=== PATIENT | female | born 1955 | race Caucasian/White ===

== ENCOUNTER → 2023-09-21 10:56 | Outpatient (REF) | payer OTHER, SELFPAY | LOC: RAD 10:56 | PROVIDERS: ATTENDING PHYSICIAN Nurse Practitioner Family; FAMILY PHYSICIAN Family Medicine | DX: M54.12 Radiculopathy, cervical region (principal) | CPT/HCPCS: 72050 ==

== ENCOUNTER → 2023-09-28 07:33 | Outpatient (REF) | payer OTHER, SELFPAY | LOC: EMG 07:33 | PROVIDERS: ATTENDING PHYSICIAN Nurse Practitioner Family | DX: R20.0 Anesthesia of skin (principal) | CPT/HCPCS: 95886; 95911 ==

== ENCOUNTER 2023-10-03 04:27 | Emergency (ER) | payer OTHER, SELFPAY ==
[2023-10-03 04:33] VITALS: BP 136/89
[2023-10-03 05:46] VITALS: BP 121/74
--- NOTE | 2023-10-03 07:43 | ED.GENMED ---
History of Present Illness
General
Chief Complaint: Skin Problem
Source: patient
Exam Limitations: none
Time Seen by Provider: 10/03/23 07:08
Nursing documentation reviewed up to this point in time: agreed with
History of Present Illness
History of Present Illness:
68-year female presents to the ER for evaluation of rash. Patient reports 2 days ago she noticed what she thought was bug bites to her arms. In the middle the night however 3 AM she got up because she felt burning in her forearms and thighs felt
the chills and vomiting and then noticed a rash to her forearms and thighs. She reports the rash is spread to her abdomen. She did take Benadryl prior to arrival and rash improving. Rash is very itchy and burning. She denies any fever though she
had chills in the middle the night. She denies any difficulty breathing lip or tongue swelling.
Past History
Past History
ED Past Medical History: Negative Hypercholesterolemia, NIDDM or IA
ED Past Surgical History: Negative Cardiac or Cholecystectomy
Social History
Tobacco: Non-smoker
Alcohol: None
Drug: None
Personal:
Living: with family
Employment: Employed
Family History
Family History: Other (Diverticulitis)
Review of Systems
Review of Systems
Allergies reviewed?: Yes
All Other Systems: ROS reviewed and negative except as documented in HPI and ROS
Constitutional: Reports no symptoms; Denies fever, fatigue or chills
Respiratory: Reports no symptoms
Cardiac: Reports no symptoms
ABD/GI: Reports nausea and vomiting
: Reports no symptoms
Musculoskeletal: Reports no symptoms
Skin: Reports itching and other (redness/rash to arms , legs/abdomen )
Neurological: Reports no symptoms
Hematologic/Lymphatic: Reports no symptoms
Psychiatric: Reports no symptoms
Phy Exam
General Physical Exam
General Presentation: no apparent distress
General age: appears stated age
General Skin: warm and dry
General Habitus: normal
General Mental: alert
General Hydration: appears well hydrated
ENT Exam
ENT Exam: other ( no lip /tongue swelling )
Neurological Exam
Neurological Exam: alert and oriented x3
Musculoskeletal Exam
Musculoskeletal Exam: full ROM
Skin Exam
Skin Exam: normal color, warm/dry and other (Redness to forearms, appears to be mild hives with redness to groin and abdomen)
Course
Orders/Labs/Results
Orders:
Orders
10/03/23 07:42
Dexamethasone Sod Phosphate [Decadron] 10 mg IV NOW STA
10/03/23 08:12
Complete Blood Count/With Diff Urgent
Comprehensive Metabolic Panel Urgent
Abnormal Lab Results
10/03/23
08:12
RBC 3.66 L 10^6/uL
(4.20-5.40)
Hgb 11.3 L g/dL
(12.0-16.0)
Hct 32.0 L %
(37.0-47.0)
Monocytes % 11.6 H %
(1.7-9.3)
AST 38 H U/L
(14-36)
10/03/23 08:12
10/03/23 08:12
Vital Signs
Initial and Last Documented VS:
Initial Vital Signs
Temp Pulse Resp BP Pulse Ox
99.0 F 79 15 136/89 99
10/03/23 04:33 10/03/23 04:33 10/03/23 04:33 10/03/23 04:33 10/03/23 04:33
Last Documented Vital Signs
Temp Pulse Resp BP Pulse Ox
99.0 F 81 20 121/74 97
10/03/23 04:33 10/03/23 05:46 10/03/23 05:46 10/03/23 05:46 10/03/23 05:46
MDM/Problems Addressed
Differential Diagnosis Includes:
not limited to: allergic reaction, contact dermatitis
MDM/Problems Addressed:
Symptoms are consistent with allergic . with c/o of chills and episode of vomiting will check basic labs give a dose of steroids and plan to d/c w/ steroids /benadryl.
0905: Patient feeling better labs unremarkable afebrile normal white count as documented symptoms are consistent with allergic less concern for infection. Will give patient prescription for steroids for the next 3 days as needed on Benadryl
*Pulse Oximetry
Patient hypoxic: no
*Critical Care Note
Total Time (30-74mins, 75-104mins- exclusive of procedures): Not Applicable
ED Attending Note
-
Portions of this chart may have been created with voice recognition software.� Occasional wrong word or��sound alike� substitutions may have occurred due to the inherent limitations of voice recognition software.
Discharge Plan
Departure
Patient Disposition: Home (Routine Discharge)
Date of Disposition: 10/03/23
Time of Disposition: 09:08
Patient with high blood pressure during this ER visit?: Yes
Condition: Fair
Covid-19: Not Applicable
Discharge Problem:
Rash
Instructions: Skin Rash (DC)
Prescriptions:
New
prednisone 20 mg tablet
40 mg PO DAILY Qty: 8 0RF
No Action
venlafaxine 75 MG capsule,extended release 24hr
150 mg PO DAILY
metoprolol succinate [Toprol XL] 50 MG tablet extended release 24 hr
75 mg PO DAILY
candesartan 8 mg Tablet
8 mg PO DAILY
rosuvastatin [Crestor] 20 mg Tablet
20 mg PO DAILY
Gemtesa 75 mg Tablet
75 mg PO DAILY
Referrals:
Jessica He DO [Family Provider] -
Activity Restrictions/Additional Instructions:
As discussed continue Benadryl 25 to 50 mg orally every 4-6 hours. You may continue steroids only if needed starting tomorrow daily for the next 4 days. Return however to the ER if any worsening of symptoms of worsening rash difficulty breathing
fever chills. Follow-up with family doctor the next several days.
Interventions
Interventions:
*Risk Screen - Suicide Last Done: 10/03/23 04:33
*General Assessment Last Done: 10/03/23 04:33
*Neglect/Abuse Screening Last Done: 10/03/23 04:33
ED- Fall Risk Assessment Last Done: 10/03/23 05:46
*ED COVID-19 Vaccine History Last Done: 10/03/23 04:33
ED-Skin Assessment Last Done: 10/03/23 05:46
Discharge Date and Time
Print Language: CANADIAN
[2023-10-03] MEDS: DECADRON 10 MG IV (08:12)
[2023-10-03 08:17] LABS: % Basophils 0.4 % (0-2); % Eosinophils 1.9 % (0-6); % Immature Granulocytes 0.2 % (0-0.5); % Lymphocytes 24.4 % (20.5-51.1); % Monocytes 11.6 % (1.7-9.3); % Neutrophils 61.5 % (42.2-75.2); Absolute Eosinophils 0.1 10^3/uL (0-0.7); Absolute Lymphocytes 1.2 10^3/uL (1.2-3.4); Absolute Monocytes 0.6 10^3/uL (0.1-0.6); Absolute Neutrophils 2.9 10^3/uL (1.4-6.5); Hemoglobin 11.3 g/dL (12.0-16.0); Mean Corp Hgb Conc. 35.3 g/dL (33.0-37.0); Mean Corpuscular Hgb 30.9 pg (27.0-31.0); Mean Corpuscular Volume 87.4 fL (81.0-99.0); Mean Platelet Volume 9.8 fL (7.4-10.4); Nucleated Red Blood Cells % 0 %; Platelet Count 266 10^3/uL (130-400); Red Blood Cell Count 3.66 10^6/uL (4.20-5.40); Red Cell Dist. Width 12.1 % (11.5-14.5); White Blood Cell Count 4.8 10^3/uL (4.8-10.8)
[2023-10-03 08:29] LABS: ALT (SGPT) 31 U/L (0-35); AST (SGOT) 38 U/L (14-36); Albumin 4.1 g/dl (3.5-5.0); Alkaline Phosphatase 78 U/L (38-126); Blood Urea Nitrogen 12 mg/dl (7-17); Calcium 9.1 mg/dl (8.4-10.2); Carbon Dioxide 26 mmol/L (22-30); Chloride 106 mmol/L (98-107); Glucose 97 mg/dl (70-99); Potassium 4.4 mmol/L (3.5-5.1); Sodium 139 mmol/L (135-145); Total Bilirubin 0.4 mg/dl (0.2-1.3); Total Protein 7.6 g/dl (6.3-8.2); eGFR > 60.00
== END 2023-10-03 09:10 | disposition home or self-care (01) ==
LOC: EMR 04:27
PROVIDERS: Nurse Practitioner; EMERGENCY PHYSICIAN Student in an Organized Health Care Education/Training Program; FAMILY PHYSICIAN Family Medicine
DX: R21 Rash and other nonspecific skin eruption (principal); R03.0 Elevated blood-pressure reading, without diagnosis of hypertension
CPT/HCPCS: 99284; 96374; 80053; 85025

== ENCOUNTER → 2023-12-25 07:39 | Outpatient (REF) | payer OTHER, SELFPAY | LOC: RAD 07:39 | PROVIDERS: ATTENDING PHYSICIAN Physician Assistant; FAMILY PHYSICIAN Family Medicine | DX: M79.643 Pain in unspecified hand (principal) | CPT/HCPCS: 73120 ==

== ENCOUNTER → 2024-01-01 10:22 | Outpatient (REF) | payer OTHER, SELFPAY | LOC: RAD 10:22 | PROVIDERS: ATTENDING PHYSICIAN Internal Medicine Rheumatology; FAMILY PHYSICIAN Family Medicine | DX: M05.741 Rheumatoid arthritis with rheumatoid factor of right hand without organ or systems involvement (principal); M05.742 Rheumatoid arthritis with rheumatoid factor of left hand without organ or systems involvement; R07.81 Pleurodynia; R76.8 Other specified abnormal immunological findings in serum | CPT/HCPCS: 71101 ==

== ENCOUNTER 2024-01-16 04:02 | Inpatient (IN) | payer OTHER, SELFPAY ==
[2024-01-15 23:04] VITALS: BP 137/83
[2024-01-15 23:20] LABS: % Basophils 0.7 % (0-2); % Eosinophils 2.3 % (0-6); % Immature Granulocytes 0.2 % (0-0.5); % Lymphocytes 28.4 % (20.5-51.1); % Monocytes 17.8 % (1.7-9.3); % Neutrophils 50.6 % (42.2-75.2); Absolute Eosinophils 0.1 10^3/uL (0-0.7); Absolute Lymphocytes 1.6 10^3/uL (1.2-3.4); Absolute Neutrophils 2.8 10^3/uL (1.4-6.5); Hematocrit 30.3 % (37.0-47.0); Hemoglobin 10.5 g/dL (12.0-16.0); Mean Corp Hgb Conc. 34.7 g/dL (33.0-37.0); Mean Corpuscular Hgb 30.6 pg (27.0-31.0); Mean Corpuscular Volume 88.3 fL (81.0-99.0); Mean Platelet Volume 9.9 fL (7.4-10.4); Nucleated Red Blood Cells % 0 %; Platelet Count 312 10^3/uL (130-400); Red Blood Cell Count 3.43 10^6/uL (4.20-5.40); Red Cell Dist. Width 12.5 % (11.5-14.5); White Blood Cell Count 5.6 10^3/uL (4.8-10.8)
[2024-01-15 23:40] LABS: ALT (SGPT) 20 U/L (0-35); AST (SGOT) 31 U/L (14-36); Alkaline Phosphatase 61 U/L (38-126); Blood Urea Nitrogen 12 mg/dl (7-17); Calcium 9.7 mg/dl (8.4-10.2); Carbon Dioxide 30 mmol/L (22-30); Chloride 102 mmol/L (98-107); Glucose 95 mg/dl (70-99); Potassium 3.9 mmol/L (3.5-5.1); Sodium 139 mmol/L (135-145); Total Bilirubin < 0.1 mg/dl (0.2-1.3); Total Protein 7.4 g/dl (6.3-8.2); eGFR > 60.00
[2024-01-15 23:43] LABS: NT-proBNP 166 pg/ml
[2024-01-15 23:46] VITALS: BP 137/69
[2024-01-15 23:48] VITALS: BMI 22.4
[2024-01-16] VITALS (26 sets, daily range): BP systolic 92–153; BP diastolic 59–97; BMI 22.8
[2024-01-16 00:25] LABS: D-Dimer 0.47 ug/mlFEU (0.00-0.50)
[2024-01-16 00:27] LABS: Lipase 149 U/L (23-300)
--- NOTE | 2024-01-16 00:29 | ED.GENMED ---
History of Present Illness
General
Chief Complaint: Chest Pain
Source: patient
Exam Limitations: none
Time Seen by Provider: 01/15/24 23:29
Nursing documentation reviewed up to this point in time: agreed with
History of Present Illness
History of Present Illness:
68-year-old female with a past medical history of hypertension, hyperlipidemia, atrial fibrillation, lupus who presents to the emergency room for evaluation of chest pain. Patient reports onset of symptoms this evening�she says she was walking home
from her friend's house (she says friend lives about 3 houses away); she says that while she was walking she developed a substernal chest pressure. She says that this lasted until she got home and rested and then resolved completely. She says
total duration of symptoms was roughly 10 minutes. She currently is chest pain-free. She said she had some very mild shortness of breath/increased awareness of her breathing but did not have any other symptoms. Denies any nausea, vomiting,
diaphoresis. She denies ever having similar symptoms in the past. She has seen Dr. Vela in the past for cardiology. In addition to chest pain for which she is presenting tonight she says that she has had some soreness in her left lower ribs
for the past week; she says she has already seen her primary doctor and had an x-ray of her ribs which was negative.
Past History
Past History
ED Past Medical History: Negative Hypercholesterolemia, NIDDM or CA
ED Past Surgical History: Negative Cardiac or Cholecystectomy
Social History
Tobacco: Non-smoker
Alcohol: None
Drug: None
Personal:
Living: with family
Employment: Employed
Family History
Family History: Other (Diverticulitis)
Review of Systems
Review of Systems
All Other Systems: ROS reviewed and negative except as documented in HPI and ROS
Constitutional: Denies fever or chills
Respiratory: Reports trouble breathing; Denies cough
Cardiac: Reports chest pain; Denies diaphoresis or palpitations
ABD/GI: Denies abdominal pain, nausea or vomiting
: Denies flank pain
Musculoskeletal: Denies edema, neck pain or back pain
Neurological: Denies dizzy or headache
Phy Exam
Physical Exam
Physical Exam:
General: Awake, alert, oriented x3; no acute distress
Head: Normocephalic, atraumatic
Eyes: Conjunctiva normal
Throat: Airway intact, handling secretions
Neck: Trachea midline, supple without meningismus
Lungs: Clear to auscultation bilaterally, no wheezing, rales, rhonchi
Heart: Regular rate and rhythm, no murmurs, gallops, or rubs; no reducible rib tenderness
Abd: Soft, non distended, nontender
Neuro: No gross deficits
Skin: no rash
Extremities: No edema in extremities, equal pulses in all extremities
Scores
Heart Failure Risk
Heart Failure Risk Score: Not Applicable
Heart Score for Chest Pain Patients
STEMI patient?: No
History: Moderately Suspicious
ECG: Normal
Age: >/= 65 years
Risk Factors: 1 or 2 Risk Factors
Troponin: </= Normal Limit
Heart Score for Chest Pain Patients: 4
Heart Score Risk: 20.3% MACE over next 6 weeks
Withdrawal Assessment of Alcohol
Withdrawal Assessment Completed?: Not applicable
Course
Orders/Labs/Results
Orders:
Orders
01/15/24 22:46
Electrocardiogram (*1) Urgent
Reason for Study: Other
Other Reason for Exam: Respiratory Distress
Cardiac Monitoring- Treatment ONCE
EKG- Treatment ONCE
IV Insert/Care/Rem.- Treatment PRN
CR Chest - 2 Views Urgent
Comment:
Reason For Exam: respiratory distress
01/15/24 23:13
Complete Blood Count/With Diff Urgent
Comprehensive Metabolic Panel Urgent
NT-proBNP Urgent
Troponin I Urgent
01/15/24 23:55
D-Dimer Urgent
Lipase Urgent
PTT Urgent
Comment: ADD ON
01/16/24 01:18
Electrocardiogram (*1) Urgent
Reason for Study: Chest Pain
EKG- Treatment ONCE
01/16/24 02:18
Troponin I Urgent
01/16/24 02:56
Aspirin Chewable [Low Strength Aspirin] 324 mg PO NOW STA
Heparin 3,700 units IV NOW STA
Nursing to Place Non Medication Order As Directed
Physician Order: PTT 6 hours after initial start of Heparin infusion
Above order entered?: Yes
01/16/24 02:58
CARDIOLOGY CONSULT Urgent
Consulting Provider: Chance Fisher
Was physician already notified: No
Reason for consult: NSTEMI
01/16/24 02:59
Consult Notification Routine
Specialty to Notify: Cardiology
01/16/24 03:00
Heparin [id number] Units/250 ml 25,000 units in 250 ml IV PER PROTOCOL
Weight to be used for heparin protocol in kilograms (kg):: 62
Protocol:: Cardiac Tx/Acute Coronary
PTT Goal Range to be used:: PTT 73 to 111 seconds
Order type:: Initial
INITIAL Infusion Dose (UNITS/KG/hr) & then follow protocol:: 15 units/kg/hr
Infusion Dose in UNITS/hr & then follow protocol (UNITS/hr):: 950
INFUSION RATE in mL/hr & then follow protocol (mL/hr):: 9.5
PTT less than or equal to 64 seconds:: Increase rate by 200 units/hr (+ 2 mL/hr)
PTT 64.1 to 72.9 seconds:: Increase rate by 100 units/hr (+ 1 mL/hr)
PTT 73 to 111 seconds:: Target Range. No change in rate.
PTT 111.1 to 130.9 seconds:: Decrease rate by 100 units/hr (- 1 mL/hr)
PTT 131 to 199.9 seconds:: HOLD for 1 hr. Then decrease rate by 200 units/hr (- 2 mL/hr)
PTT greater than or equal to 200 seconds:: HOLD for 2 hrs & Notify Provider. Then decrease by 200 units/hr (-
2 mL/hr)
Lab follow-up:: Each change, PTT q6h until 2 consecutive are therapeutic. Then PTT
daily.
01/16/24 03:05
Add On- LAB Urgent
Tests Added?: PTT
01/16/24 03:17
Heparin [id number] Units/250 ml 25,000 units in 250 ml .ROUTE .STK-MED
01/16/24 03:30
Electrocardiogram (*1) Urgent
Reason for Study: Chest Pain
EKG- Treatment ONCE
Nitroglycerin Sublingual [Nitrostat (Sublingual)] 0.4 mg SL NOW STA
01/16/24 03:31
Nitroglycerin Sublingual [Nitrostat (Sublingual)] 0.4 mg .ROUTE .STK-MED ONE
01/16/24 03:43
Admit/Transfer Patient As Directed
Co-Sign Provider:
Level of Care: Inpatient admission
Assign to:: IVU
Physician / Group: Hospitalist
Diagnosis: NSTEMI
Reason for Hospitalization: NSTEMI, chest pain
Expected length of stay greater than two midnights?: Yes
ELOS- Estimated Length of Stay in days: 2
I certify the patient meets the requirements for IP care: Yes
PRN Pain Medication Management As Directed
May give lesser potent ordered pain med per pt: Yes
preference::
Protocol:: Medication orders for pain may be administered in a
manner that supports deferring to patient preference
when the pt is:
- Requesting an ordered lesser potent pain medication.
Least to most potent pain medications are defined
as: acetaminophen < NSAID < tramadol < opioids
(morphine, oxycodone, hydromorphone).
- Requesting a lesser dose of the same medication IF
ORDERED.
- Requesting a less intrusive route of administration
if both routes are prescribed by the provider (PO <
IV).
01/16/24 03:44
Code Status As Directed
Resuscitation Status: Full Code
01/16/24 04:00
Flush (0.9% Sodium Chloride) [Flush (Nss)] See Dose Instructions IV PER PROTOCOL
01/16/24 04:48
Acetaminophen [Tylenol] 650 mg PO Q4HPRN PRN
Nitroglycerin Sublingual [Nitrostat (Sublingual)] 0.4 mg SL [id number] PRN
Ondansetron Injectable [Zofran] 4 mg IV Q6HPRN PRN
01/16/24 04:48
Echo 2D MMode Color/Doppler Routine
Reason for Study: chest pain
VTE Contraindication Routine
VTE Mechanical Device Contraindication: Medical Contraindication
Pharmocologic Contraindication: Medical Contraindication
Heparin Protocol- PTT Orders As Directed
PTT per Heparin protocol: -Obtain CBC and baseline PTT - if not already collected.
-Obtain PTT 6 hours from start of infusion. Then, every 6 hours until 2 consecutive
PTT's are therapeutic. Then, PTT Daily.
-With each rate change, obtain PTT every 6 hours until 2 consecutive PTT's are
therapeutic. Then, PTT Daily.
Activity As Directed
Activity Level: With Assistance
INT (Intravenous Needle Therapy) As Directed
Comment: maintain peripheral IV access
Intake/ Output As Directed
Frequency: Per unit guidelines
Notify MD As Directed
Notify physician if: PTT is greater than or equal to 200.
Vital Signs As Directed
Frequency: q4h
Weight As Directed
Frequency: Daily
O2 Therapy [RESP] Routine
Nasal Cannula Liter Flow: 2 LPM
Titrate/Wean O2 to maintain O2 sat greater than (%): 90
Special Instructions: 2 liters/minute as needed for pulse oximetry less than 90%
Pulse Ox/spot Check [RESP] Routine
Quantity: 1
Special Instructions: on admission and then every shift if on oxygen
01/16/24 06:00
Electrocardiogram (*1) Q6H
Reason for Study: Chest Pain
Comment: at admission and Q3H for total of 3, to be done with each troponin
NPO
Allow oral meds: Yes
Allow clear liquids: Sips of Clears
Basic Metabolic Panel IN AM
Cardiovascular Evaluation IN AM
Glycohemoglobin (HgbA1c) IN AM
Troponin I Q3H
Comment: at admit & Q3H for 3 total including ED draws, obtain ECG with each level
01/16/24 08:00
Hydroxychloroquine [Plaquenil] 300 mg PO DAILY
01/16/24 09:00
Troponin I Q3H
Comment: at admit & Q3H for 3 total including ED draws, obtain ECG with each level
01/16/24 09:26
PTT Urgent
01/16/24 12:00
Electrocardiogram (*1) Q6H
Reason for Study: Chest Pain
Comment: at admission and Q3H for total of 3, to be done with each troponin
01/16/24 22:00
Candesartan Cilexetil [Atacand] 8 mg PO HS
Metoprolol Xl [Toprol Xl] 75 mg PO HS
Raloxifene [Evista] 60 mg PO HS
Rosuvastatin Calcium [Crestor] 20 mg PO HS
Venlafaxine Extended Release [Effexor Xr] 150 mg PO HS
01/18/24 06:00
Complete Blood Count/No Diff Q2D
Comment: notify provider: Platelet count < 130,000 or decrease by 50% from baseline
01/20/24 06:00
Complete Blood Count/No Diff Q2D
Comment: notify provider: Platelet count < 130,000 or decrease by 50% from baseline
01/22/24 06:00
Complete Blood Count/No Diff Q2D
Comment: notify provider: Platelet count < 130,000 or decrease by 50% from baseline
01/24/24 06:00
Complete Blood Count/No Diff Q2D
Comment: notify provider: Platelet count < 130,000 or decrease by 50% from baseline
01/26/24 06:00
Complete Blood Count/No Diff Q2D
Comment: notify provider: Platelet count < 130,000 or decrease by 50% from baseline
01/28/24 06:00
Complete Blood Count/No Diff Q2D
Comment: notify provider: Platelet count < 130,000 or decrease by 50% from baseline
01/30/24 06:00
Complete Blood Count/No Diff Q2D
Comment: notify provider: Platelet count < 130,000 or decrease by 50% from baseline
02/01/24 06:00
Complete Blood Count/No Diff Q2D
Comment: notify provider: Platelet count < 130,000 or decrease by 50% from baseline
Abnormal Lab Results
01/15/24 01/16/24
23:13 02:18
RBC 3.43 L 10^6/uL
(4.20-5.40)
Hgb 10.5 L g/dL
(12.0-16.0)
Hct 30.3 L %
(37.0-47.0)
Absolute Monos (auto) 1.0 H 10^3/uL
(0.1-0.6)
Monocytes % 17.8 H %
(1.7-9.3)
Total Bilirubin < 0.1 L mg/dl
(0.2-1.3)
Troponin I 0.418 H* D ng/ml
01/15/24 23:13
01/15/24 23:13
Vital Signs
Initial and Last Documented VS:
Initial Vital Signs
Temp Pulse Resp BP Pulse Ox
37.1 C 86 20 137/83 98
01/15/24 23:04 01/15/24 23:04 01/15/24 23:04 01/15/24 23:04 01/15/24 23:04
Last Documented Vital Signs
Temp Pulse Resp BP Pulse Ox
36.6 C 76 20 139/81 95
01/16/24 04:50 01/16/24 04:00 01/16/24 04:50 01/16/24 04:00 01/16/24 04:50
MDM/Problems Addressed
Differential Diagnosis Includes:
Angina/CA, PE, GERD, costochondritis, paroxysmal A-fib
MDM/Problems Addressed:
68-year-old female presents for evaluation of chest pain�she had an episode that occurred while she was walking home, lasted about 10 minutes and resolved with rest. Has not had recurrence. Incidentally also notes that she has been having some
left lower rib pain for the past week, thought to potentially be musculoskeletal by her primary doctor. Vital signs here within normal limits. Physical exam as above. EKG shows no STEMI but does show some subtle lateral ST depressions. Will
place an IV check labs including a CBC and a CMP. Check serial troponins. Check a D-dimer. Will check chest x-ray. Monitor closely reassess after the above.
Initial labs reviewed: CBC unremarkable, CMP no clinically significant abnormalities. Initial troponin negative, repeat pending. Chest x-ray reviewed by me shows no acute disease. D-dimer negative. Continue to monitor.
Repeat troponin significantly uptrending to 0.418�will treat with aspirin, heparin. Consult placed to cardiology. Case discussed with hospitalist for admission.
Chronic conditions affecting care:
Hypertension, hyperlipidemia, atrial fibrillation
Acute Exacerbation and/or Progression of Chronic Illness:
Acutely hypertensive
Acute Exacerbation and/or Progression of Chronic Illness: HTN
*Radiology
Radiology exam reviewed: preliminary read by ED provider and radiology read reviewed
*Pulse Oximetry
Patient hypoxic: no
*EKG
Interpreted by ED Provider?: Yes
Heart Rate: 91
Rate: normal
Rhythm: sinus
[place]: normal axis
Interval: normal interval
QRS Pattern: normal QRS
Ischemia: non-specific ST changes
*Critical Care Note
Total Time (30-74mins, 75-104mins- exclusive of procedures): Not Applicable
Data Reviewed
Review of Other/Old Records Reveals: Labs and Records
Source: patient
Patient Management
Discussion with other providers: Hospitalist (Discussed with hospitalist)
Escalation/DeEscalation of care consider admission/obs:
Admission indicated
ED Attending Note
-
Portions of this chart may have been created with voice recognition software.� Occasional wrong word or��sound alike� substitutions may have occurred due to the inherent limitations of voice recognition software.
Discharge Plan
Departure
Patient Disposition: Admit
Date of Disposition: 01/16/24
Time of Disposition: 03:01
Admit to doctor: Mavis
Presentation/result/management discussed w/ accepting MD/DO: Hospitalist
Discharge Problem:
Non-ST elevation CA (NSTEMI)
Interventions
Interventions:
*Risk Screen - Suicide Last Done: 01/16/24 05:00
*General Assessment Last Done: 01/15/24 23:48
*Neglect/Abuse Screening Last Done: 01/15/24 23:48
ED- Fall Risk Assessment Last Done: 01/16/24 04:24
*ED COVID-19 Vaccine History Last Done: 01/16/24 04:55
*Nursing Disposition Last Done: 01/16/24 04:24
ED- Cardiac Assessment Last Done: 01/15/24 23:48
Discharge Date and Time
Discharge Date/Time: 01/16/24 04:30
[2024-01-16 02:57] LABS: Troponin I 0.418 ng/ml
[2024-01-16] MEDS: LOW STRENGTH ASPIRIN 324 MG PO (03:03)
[2024-01-16 03:17] LABS: APTT 26.5 Sec (23.4-35.0)
[2024-01-16] MEDS: HEPARIN 3700 UNITS IV (03:25)
[2024-01-16] MEDS: HEPARIN 25000 UNITS/250 ML IV (03:26)
[2024-01-16] MEDS: NITROSTAT (SUBLINGUAL) 0.4 MG SL ×3 (03:35→07:01)
--- NOTE | 2024-01-16 04:08 | HPS.HSE ---
Family Physician
-
Family Physician: Jessica He
Chief Complaint
-
Recurrent substernal chest pain
History of Present Illness
This is a 68-year-old female with past medical history of hyperlipidemia, hypertension, remote history of supraventricular tachycardia but not to A-fib and not anticoagulated presenting to the emergency department with recurrent episode of
substernal chest pain.
Patient reports that she was recently diagnosed with mixed connective tissue disorder due to markedly elevated JOAN and decreased complement levels and was started on Plaquenil. She has also been having epigastric discomfort that radiates to the
back. She reported that she had a new episode of chest pain today that was associated with walking across 3 houses. This improved when she rested. She reported some dyspnea on exertion with the chest pain. Later in the evening the patient
reported that she had recurrence of substernal chest pain at rest that radiates to the shoulders bilaterally and down the arms. She did not associated with nausea or diaphoresis. She reported that it lasted for about 10 minutes before subsiding.
She drove herself to the emergency department and while she walked into the building she had dyspnea on exertion. While in the ED she stated that the chest pain had resolved.
Patient denies known history of CAD. She had stress test many years ago. She has a history of palpitations for which she had a recent Holter monitor that has been negative.
In the emergency department the patient was afebrile and hemodynamically stable with a blood pressure of 134/78 satting at 99% on room air. ECG showed a normal sinus rhythm with initial ST depressions in V5 through 6 that resolved with time.
Troponin was 0.02 then 0.4. CBC was unremarkable. Chemistry shows no acute abnormalities.
Medical History
Past Medical History
Past Medical History: Reports HTN and Hypercholesterolemia
Additional Past Medical History:
Mixed connective tissue disorder
Past Surgical History: Reports None
Social History
Tobacco: Former Smoker
Alcohol: Binge drinker (She reports drinking up to 10 bottles of beer on weekends)
Drug: None
Personal:
Living: With Family
Employment: Employed
Family History
Family History: CAD
Allergies / Home Medications
Allergies reflects when Allergies were last updated in [employer].
Home Medications with original date entered in [employer]
Allergy/Medication List:
Allergies
Allergy/AdvReac Type Severity Reaction Status Date / Time
Sulfa (Sulfonamide Allergy rash total Verified 10/03/23 04:33
Antibiotics) body
Home Medications
metoprolol succinate 50 mg tablet,extended release 24 hr (Toprol XL) 75 mg PO HS 08/24/17
venlafaxine 75 mg capsule,extended release 24 hr 150 mg PO HS 08/24/17
candesartan 8 mg tablet 8 mg PO HS 10/03/23
rosuvastatin 20 mg tablet 20 mg PO HS 10/03/23
hydroxychloroquine 200 mg tablet (Plaquenil) 300 mg PO DAILY 01/16/24
raloxifene 60 mg tablet (Evista) 60 mg PO HS 01/16/24
Review of Systems
-
History Source: Patient
Constitutional: Reports No Symptoms
EENT: Reports No Symptoms
Respiratory: Reports No Symptoms
Cardiac: Reports Chest Pain
Abdomen/GI: Reports Abdominal Pain
: Reports No Symptoms
Musculoskeletal: Reports No Symptoms
Skin: Reports No Symptoms
Neurological: Reports No Symptoms
Endocrine: Reports No Symptoms
Hematologic/Lymphatic: Reports No Symptoms
Psych: Reports No Symptoms
Physical Exam
Vital Signs
Vital Signs
Temp Pulse Resp BP Pulse Ox
98.3 F 76 19 139/81 98
01/15/24 23:04 01/16/24 04:00 01/16/24 04:00 01/16/24 04:00 01/16/24 04:00
Physical Exam
General: Well Developed, Well Nourished, No Apparent Distress and Conversant
HEENT: NormoCephalic, Anicteric, Moist mucous membranes and Atraumatic
Respiratory: Clear
Cardiac: S1/S2 and Regular Rhythm
GI: Soft, Normal Bowel Sounds and Tender
Rectal: Deferred by Provider
Genito-urinary: Deferred by me
Musculoskeletal: No Clubbing, No Cyanosis and No Edema
Skin: Warm
Neuro: AO x 3
Hematologic/Lymphatic: No Lymphadenopathy
Psych: Calm
Laboratory Results
-
01/15/24 23:13
01/15/24 23:13
Laboratory Results
APTT Cancelled 01/16/24 02:56
Total Bilirubin < 0.1 mg/dl (0.2-1.3) L 01/15/24 23:13
AST 31 U/L (14-36) 01/15/24 23:13
ALT 20 U/L (0-35) 01/15/24 23:13
Alkaline Phosphatase 61 U/L (38-126) 01/15/24 23:13
Troponin I 0.418 ng/ml H* D 01/16/24 02:18
Lipase 149 U/L (23-300) 01/15/24 23:55
Data Reviewed
-
Diagnostic Radiology: Image Personally Visualized and interpreted
Medical Tests (Nuc Med, Echo, EKG etc): Image Personally Visualized and interpreted
Lab Data: Labs Reviewed by me
Old Records: Reviewed
Impression/Plan
-
IMPRESSION:
Patient with history of hypertension and hyperlipidemia who presents to the emergency department with 2 episodes of chest pain 1 associated with exertion and 1 at rest lasting 10 minutes radiating to the shoulders bilaterally. ECG with ST
depressions in V5/6 that resolved with time. Currently chest pain-free. Rising troponin from 0.02 to 0.4.
PLAN:
1. NSTEMI -patient with typical chest pain and elevated troponin without ST elevations consistent with NSTEMI. She is currently chest pain-free, hemodynamically stable.
- admit to ivu
- aspirin given
- started on heparin gtt
- continue statin
- ntg prn chest pain
- echo, cardiovasc labs,
- cardiology consult
- NPO for now pending cardiology eval
2. Epigastric discomfort - More chronic and persistent epigastric pain that radiates to the back independent of the chest pain today. H/O ETOH use but no nsaid use. Denies reflux symptoms. Possibly gastritis. No evidence of pancreatitis on labs.
Cannot rule out biliary colic but exam is benign.
- trial of famotidine and gi cocktail
- RUQ pain
- tylenol prn
- after cardiology evaluation may consider imaging
3. HTN
- continue arb, metoprolol
DVT PPX - on heparin gtt
Code Status - Full Code
[2024-01-16] MEDS: MAALOX 50 PO (04:21)
[2024-01-16] MEDS: PEPCID 20 MG IV (04:21)
[2024-01-16] MEDS: NSS (PRESERVATIVE FREE) 8 ML IV (04:21)
[2024-01-16] MEDS: EFFEXOR XR 150 MG PO (05:16)
--- NOTE | 2024-01-16 06:13 | PTCARENOTE ---
pt received from ed via stretcher to 2253. pt ambulated to bed. pt denies chest pain or discomfort at this time.denies abdomen discomfort.heparin drip infusing at 950 units. ekg and am labs done.
[2024-01-16 06:46] LABS: Blood Urea Nitrogen 12 mg/dl (7-17); Calcium 8.9 mg/dl (8.4-10.2); Carbon Dioxide 24 mmol/L (22-30); Chloride 105 mmol/L (98-107); Estimated Creatinine Clearance 72 ml/min; Glucose 93 mg/dl (70-99); HDL Cholesterol 36 mg/dl; LDL Cholesterol, Calculated 76 mg/dl; Potassium 3.9 mmol/L (3.5-5.1); Sodium 140 mmol/L (135-145); Total Cholesterol 137 mg/dl (50-199); Triglyceride 125 mg/dl (10-149); Very Low Density Lipoprotein 25 mg/dl (0-30); eGFR > 60.00
--- NOTE | 2024-01-16 06:48 | CON.CAR ---
Addendum entered and electronically signed by Chance Fisher MD 01/16/24 07:24:
Decision was made to give Plavix rather than ticagrelor. There appeared to be some drug drug interaction with some of the contacts of the GI cocktail that was just given early this morning in the emergency department. Although the dose of those
medications and the GI cocktail was small in order to avoid any drug drug interactions I opted to use Plavix which did not have the same interaction.
Original Note:
Consultation
Consultation Request
Date/Time Consultation Requested: 01/16/2024 6:30 AM
Date/Time Consultation Performed: 01/16/2024 6:30 AM
Requesting Provider: Hospitalist
Performing Provider: Dr. Fisher
Reason for Consultation: Chest pain/NSTEMI
Medical History
-
History of Present Illness:
68-year-old woman with a history of hypertension hypercholesterolemia, afib (isolated episode many years ago), recent diagnosis of mixed connective tissue disorder, Raynaud's and a family history of coronary artery disease who presents with chest
discomfort. Patient was in her usual state of health walking home from her neighbor's house 3 houses down and developed some burning chest discomfort across her chest with some radiation of to her neck when she got home symptoms resolved after
rest. Total duration 10 minutes. Last night patient developed another episode which occurred at rest and again lasted about 10 minutes she then decided to go to the ER on her walk into the ER she had some mild chest discomfort that resolved with
rest and she also had a brief episode of chest discomfort while in the ER. Initial ECG suggested some subtle ST changes in the lateral leads although follow-up ECGs were unremarkable. Patient was admitted by the hospitalist placed on aspirin and
heparin. Continued on usual beta-dorothy and statin. When initially saw her this morning she had no chest discomfort when I started talking to her about her symptoms she developed some mild symptoms 3/10 in intensity. ECG this morning has shown
sinus rhythm with T wave inversions in V1-V3
Patient's had a history of palpitations which she saw Dr. Jewell in the past she has had no sustained palpitations recently she is maintained on beta-dorothy. History of hypertension which is to been stable. Distant history of smoking but is not
smoked about 30 years. She has a family history of coronary disease which includes her father who had an [place] in his 50s and mother who had heart disease in her 80s. Patient has no history of diabetes.
Recent diagnosis of mixed connective tissue disorder. Evaluation was prompted because patient said she was having some Raynaud's where fingers would turn white she also had some other pains in hands. Review of systems also notable for. Periodic
of the mid to lower back discomfort with radiation to the left flank.
Past medical history
Hypertension
hypercholesterolemia
Mixed connective tissue disorder
Palpitations
Isolated episode of A-fib
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 Lives with her mother. 2 kids which are currently on vacation outside the country
Family history positive for CAD as noted above
.
Past Medical History
Past Medical History: Other (As noted)
Social History
Tobacco: Former Smoker
Employment: Other
Family History
Family History: CAD
Allergies / Home Medications
Allergy/AdvReac Type Severity Reaction Status Date / Time
Sulfa (Sulfonamide Allergy rash total Verified 10/03/23 04:33
Antibiotics) body
�Medication �Instructions �Recorded �Confirmed �Type
metoprolol succinate 50 mg 75 mg PO HS 08/24/17 01/16/24 History
tablet,extended release 24 hr
(Toprol XL)
venlafaxine 75 mg capsule,extended 150 mg PO HS 08/24/17 01/16/24 History
release 24 hr
candesartan 8 mg tablet 8 mg PO HS 10/03/23 01/16/24 History
rosuvastatin 20 mg tablet 20 mg PO HS 10/03/23 01/16/24 History
hydroxychloroquine 200 mg tablet 300 mg PO DAILY 01/16/24 01/16/24 History
(Plaquenil)
raloxifene 60 mg tablet (Evista) 60 mg PO HS 01/16/24 01/16/24 History
Review of Systems
-
All other systems: Negative unless noted
Physical Exam
Vital Signs
Temp Pulse Resp BP Pulse Ox
97.9 F 76 20 139/81 95
01/16/24 04:50 01/16/24 04:00 01/16/24 04:50 01/16/24 04:00 01/16/24 04:50
Lab Results
01/15/24 23:13
01/16/24 06:03
Troponin I 0.418 ng/ml H* D 01/16/24 02:18
Pwj-O-Issqpgvjdwp Pept 166 pg/ml 01/15/24 23:13
Physical Exam
General: Well Developed and Well Nourished
HEENT: Normocephalic, Anicteric and Other (EOMI. External ear and oral exam unremarkable neck without JVD no carotid bruit)
Respiratory: Clear (No wheezes rales or rhonchi)
Cardiac: S1/S2, Regular Rhythm and Other (No murmur)
GI: Soft, Non Tender, Non Distended and Other (No mass)
Musculoskeletal: No Cyanosis
Neuro: Awake, Alert and Oriented
Hematologic/Lymphatic: No Lymphadenopathy
Impression / Plan
-
NSTEMI.
-Patient with intermittent episodes of chest discomfort starting at 3 PM yesterday initial symptoms were with exertion but patient since developed some episodes with rest.
-Second troponin 0.4
-Patient had some recurrent chest discomfort relieved with nitroglycerin x 2. Now on IV nitro and pain-free
-Presentation consistent with NSTEMI.
-Aspirin
-IV heparin
-IV nitro
-Beta-dorothy
-Brilinta
-The patient has recurrent symptoms refractory to medical therapy then we will proceed with cardiac catheterization
.
Back flank and epigastric pain. Patient said a separate type of discomfort that she is seeing her waredresser for she has some discomfort with palpation over left lower ribs she says she sometimes has back pain that radiates to the front and she
points to the left lower rib/left costal margin along with some epigastric discomfort. Epigastric and left costal margin symptoms are different than the upper chest discomfort that initially started with ambulation and was the recurrent
symptom/chief complaint
-Will add PPE
Hypertension stable continue to monitor on current therapy
hypercholesterolemia.-Statin
Mixed connective tissue disorder
Data Reviewed
-
Radiology: Image Personally Visualized and interpreted (No infiltrates.)
Medical Tests (Nuc Med, Echo etc): Report Reviewed by me and Discussed with Nurse
Labs: Labs Reviewed by me and Discussed with Nurse
[2024-01-16 06:51] LABS: Troponin I 0.647 ng/ml
[2024-01-16] MEDS: NITROGLYCERIN PREMIX 250 IV (07:10)
--- NOTE | 2024-01-16 07:20 | PTCARENOTE ---
dr alexander to see pt. pt developed chest pain. rates it 06/13. ekg done. 1 sl nitro given with no relief. second sl nitro given with chest pain relief obtained. second ekg done. iv nitro started at 5 mcg. pt very anxious and concerned about mom at
home and pet trainer for son who is traveling. support provided frequently.
[2024-01-16] MEDS: PLAVIX 600 MG PO (07:48)
[2024-01-16 10:03] LABS: APTT 74.4 Sec (23.4-35.0)
[2024-01-16 10:17] LABS: Troponin I 0.771 ng/ml
[2024-01-16 11:31] LABS: Glycohemoglobin (HgbA1c) 5.5 % (4.0-5.6)
[2024-01-16] MEDS: TYLENOL 650 MG PO ×2 (11:56→19:44)
[2024-01-16] MEDS: PLAQUENIL 300 MG PO (14:54)
[2024-01-16 15:43] LABS: APTT 98.2 Sec (23.4-35.0)
--- NOTE | 2024-01-16 15:45 | W.PN.UPDATE ---
Update Note
Progress Note Update
non-billable addendum to chart
admitted earlier this AM for chest pain, found to have NSTEMI - on IV NTG and IV Heparin drips
currently chest pain free
Assessment:
N-STEMI
- continue IVU Care
- trend trops to peak 0.771
- continue ASA/Plavix
- continue statin; LDL 76
- continue Nitro drip
- continue heparin drip - requires intensive monitoring of PTT levels
- Echo
- likely Cath Thursday; NPO p MN just in case
Epigastric discomfort
- continue GI cocktail/Pepcid
Essential HTN
- ARB/BB
HLD - statin
Possible mixed connective tissue disorder
- on Plaquenil
DVT ppx: IV Heparin
Code: Full
[2024-01-16 15:53] LABS: Troponin I 0.679 ng/ml
[2024-01-16] MEDS: PEPCID 20 MG PO (19:44)
--- NOTE | 2024-01-16 21:12 | PTCARENOTE ---
Received patient at change of shift. Patient awake, alert, and oriented sitting in bed. Patient c/o side pain-- 'feels muscular.' RN gave patient warming blanket to lay on side. Patient stated that 'felt much better.' BP 92/60, NSR-ST 99-104, 96% on
room air. Discussed care plan with patient. Patient verbalized understanding. Call clark within reach.
[2024-01-16 21:25] LABS: Troponin I 0.421 ng/ml
[2024-01-16] MEDS: ATACAND PO (22:33)
[2024-01-16] MEDS: EFFEXOR XR PO (22:34)
[2024-01-16] MEDS: TOPROL XL 75 MG PO (22:38)
[2024-01-16] MEDS: CRESTOR 20 MG PO (22:38)
[2024-01-16] MEDS: EVISTA 60 MG PO (22:38)
[2024-01-17] VITALS (7 sets, daily range): BP systolic 108–140; BP diastolic 67–90; BMI 21.8
[2024-01-17 04:00] LABS: Hematocrit 29.1 % (37.0-47.0); Hemoglobin 10.2 g/dL (12.0-16.0); Mean Corp Hgb Conc. 35.1 g/dL (33.0-37.0); Mean Corpuscular Hgb 30.6 pg (27.0-31.0); Mean Corpuscular Volume 87.4 fL (81.0-99.0); Platelet Count 277 10^3/uL (130-400); Red Blood Cell Count 3.33 10^6/uL (4.20-5.40); Red Cell Dist. Width 12.5 % (11.5-14.5); White Blood Cell Count 7.4 10^3/uL (4.8-10.8)
[2024-01-17 04:11] LABS: APTT 98.2 Sec (23.4-35.0)
[2024-01-17 04:34] LABS: Blood Urea Nitrogen 13 mg/dl (7-17); Calcium 8.5 mg/dl (8.4-10.2); Carbon Dioxide 24 mmol/L (22-30); Chloride 107 mmol/L (98-107); Estimated Creatinine Clearance 84 ml/min; Glucose 92 mg/dl (70-99); Sodium 140 mmol/L (135-145); eGFR > 60.00
[2024-01-17] MEDS: HEPARIN 25000 UNITS/250 ML IV (07:07)
--- NOTE | 2024-01-17 07:27 | W.PN.CD ---
Today's Communication / Plan
-
No recurrent chest pain over 24 hours.
Continue current therapy
Catheterization 01/18/2024
Impression / Plan
-
NSTEMI.
-Patient with intermittent episodes of chest discomfort starting at 3 PM 01/15/2024 Initial symptoms were with exertion but patient since developed some episodes with rest.
-Peak troponin 0.7.
-Aspirin
-IV heparin
-IV nitro
-Beta-dorothy
-Brilinta
-Plan for catheterization 01/18/2024
-The patient has recurrent symptoms refractory to medical therapy then we will proceed with cardiac catheterization sooner
.
Back flank and epigastric pain. Patient said a separate type of discomfort that she is seeing her gender studies professor for she has some discomfort with palpation over left lower ribs she says she sometimes has back pain that radiates to the front and she
points to the left lower rib/left costal margin along with some epigastric discomfort. Patient thinks it is musculoskeletal.
-May be musculoskeletal.
-PPI added 01/16/2024
Hypertension stable continue to monitor on current therapy
-Atacand stopped to allow room for nitro
hypercholesterolemia.-Statin
Mixed connective tissue disorder
Physical Exam
Vital Signs/Labs
Vital Signs
Temp Pulse Resp BP Pulse Ox
98.6 F 76 16 121/74 96
01/17/24 03:37 01/17/24 04:00 01/17/24 03:37 01/17/24 03:37 01/17/24 03:37
01/16/24 01/17/24 01/18/24
06:59 06:59 06:59
Actual Weight 63.1 kg 60.4 kg
01/17/24 03:49
01/17/24 03:49
APTT 98.2 Sec (23.4-35.0) H 01/17/24 03:49
Triglycerides 125 mg/dl (10-149) 01/16/24 06:03
LDL Cholesterol, Calc 76 mg/dl 01/16/24 06:03
VLDL Cholesterol, Calc 25 mg/dl (0-30) 01/16/24 06:03
HDL Cholesterol 36 mg/dl 01/16/24 06:03
01/15/24
23:13
Wuw-D-Gnqomqvvphr Pept 166
LAB Results
01/15/24 01/16/24 01/16/24
23:13 02:18 06:03
Troponin I 0.020 0.418 H* D 0.647 H* D
01/16/24 01/16/24 01/16/24
09:33 15:24 20:44
Troponin I 0.771 H* 0.679 H* 0.421 H* D
Physical Exam
Constitutional: No acute distress
EENT: Anicteric
Cardiovascular: Rhythm & rate is regular
Respiratory: Respiratory effort normal, Wheeze Absent and Rhonchi Absent
GI: Soft, Non tender and Normal bowel sounds
Neuro/Psych: Alert, Oriented and AO x 3
Data Reviewed
-
Date of Service: January 17, 2024
Medical Decision Making: Reviewed Test Results
EKG: Ordered by me
Echo: Ordered by me
Medical Tests (PFT, Pathology etc): Report Reviewed by me
Labs: Labs Reviewed by me
[2024-01-17] MEDS: ASPIRIN 325 MG PO (09:33)
[2024-01-17] MEDS: PLAVIX 75 MG PO (09:33)
[2024-01-17] MEDS: PLAQUENIL 300 MG PO (09:33)
[2024-01-17] MEDS: PEPCID 20 MG PO ×2 (09:33→19:48)
[2024-01-17 10:15] LABS: Troponin I 0.269 ng/ml
[2024-01-17 12:08] LABS: Urine Albumin Negative (Neg - Trace); Urine Bilirubin Negative (Negative); Urine Character Clear (Clear); Urine Color Yellow; Urine Glucose Negative (Negative); Urine Ketone Negative (Negative); Urine Leukocyte Negative (Negative); Urine Nitrite Negative (Negative); Urine Occult Blood Negative (Negative); Urine Urobilinogen Negative (Neg - 1+)
--- NOTE | 2024-01-17 13:39 | W.PN.HOSP.TC ---
Today's Communication/Plan
-
continue IV Heparin, IV Nitro drips
continue ASA/Plavix
NPO p MN for [facility] tomorrow
Assessment / Plan
Assessment / Plan
Assessment:
N-STEMI
- continue IVU Care
- trops peaked at 0.771
- continue ASA/Plavix
- continue statin; LDL 76
- continue Nitro drip; >24 hours chest pain free
- continue heparin drip - requires intensive monitoring of PTT levels
- Echo Thursday
- Cath Thursday; NPO p MN
- follow CBC cards recs
Epigastric discomfort
- continue GI cocktail/Pepcid
Essential HTN
- ARB/BB
HLD - statin
Possible mixed connective tissue disorder
- on Plaquenil
DVT ppx: IV Heparin
Code: Full
Anticipated Discharge: > 48 hours
Subjective/Interval History
-
Date of Service: January 17, 2024
no chest pain
no SOB
remains on IV Nitro and IV heparin
Objective Data
-
Labs:
Laboratory Results
01/17/24
03:49
WBC 7.4
Hgb 10.2 L
Hct 29.1 L
Plt Count 277
APTT 98.2 H
Sodium 140
Potassium 4.0
Chloride 107
Carbon Dioxide 24
BUN 13
Creatinine 0.6
Glucose 92
Calcium 8.5
Vital Signs:
Vital Signs
Temp Pulse Resp BP Pulse Ox
99.4 F 76 20 121/74 99
01/17/24 11:49 01/17/24 04:00 01/17/24 11:49 01/17/24 03:37 01/17/24 11:49
I&O
01/16/24 01/17/24 01/18/24
06:59 06:59 06:59
Intake Total 123.6 / 123.6
Output Total 1150 / 1150
Balance -1026.4 / -1026.4
Physical Exam
-
General: No Apparent Distress
HEENT: Normocephalic
Respiratory: Negative Wheezes
Cardiac: Regular Rhythm and S1/S2
GI: Soft
Musculoskeletal: No Edema
Neuro: AO x 3
Hematologic / Lymphatic: No Lymphadenopathy
Psych: Calm
Data Reviewed
-
Total Time Spent with Patient (in minutes): 51
Labs: Labs Reviewed by me
--- NOTE | 2024-01-17 15:29 | PTCARENOTE ---
01/17/24 Received patient this AM in bed with no complaints. IV Heparin infusing at 950 units/hr and IV Nitroglycerin infusing at 5mcg. Pt is AAO x3, no chest pain, or shortness of breath, VSS. Pt on room air @97%. Pt went down for a CT abd/pelvis
that was ordered. Pt OOB chair , walking around room. Pt awaiting an Echo and cardiac catheterization tomorrow 01/17. Will monitor throughout my shift.
[2024-01-17] MEDS: TYLENOL 650 MG PO (16:53)
[2024-01-17] MEDS: EFFEXOR XR 150 MG PO (22:20)
[2024-01-17] MEDS: CRESTOR 20 MG PO (22:20)
[2024-01-17] MEDS: TOPROL XL 75 MG PO (22:21)
[2024-01-17] MEDS: EVISTA 60 MG PO (22:21)
--- NOTE | 2024-01-17 23:39 | PTCARENOTE ---
Pt. has no complaints of chest pain/discomfort, VSS, NSR on the monitor. Nitro and heparin drips infusing as ordered. Plan of care for tomorrow discussed with pt., NPO for cardiac cath, understanding verbalized. Pt. currently sleeping.
[2024-01-18] VITALS (14 sets, daily range): BP systolic 115–149; BP diastolic 72–94; BMI 21.6
[2024-01-18] MEDS: TYLENOL 650 MG PO ×3 (03:12→22:07)
[2024-01-18] MEDS: HEPARIN 25000 UNITS/250 ML IV (03:34)
[2024-01-18 03:49] LABS: Hematocrit 31.4 % (37.0-47.0); Hemoglobin 10.9 g/dL (12.0-16.0); Mean Corp Hgb Conc. 34.7 g/dL (33.0-37.0); Mean Corpuscular Hgb 31.8 pg (27.0-31.0); Mean Corpuscular Volume 91.5 fL (81.0-99.0); Mean Platelet Volume 10.4 fL (7.4-10.4); Platelet Count 281 10^3/uL (130-400); Red Blood Cell Count 3.43 10^6/uL (4.20-5.40); Red Cell Dist. Width 12.6 % (11.5-14.5); White Blood Cell Count 5.6 10^3/uL (4.8-10.8)
[2024-01-18 04:18] LABS: Albumin 3.7 g/dl (3.5-5.0); Blood Urea Nitrogen 8 mg/dl (7-17); Calcium 8.6 mg/dl (8.4-10.2); Carbon Dioxide 24 mmol/L (22-30); Chloride 108 mmol/L (98-107); Estimated Creatinine Clearance 84 ml/min; Glucose 105 mg/dl (70-99); Phosphorus 3.7 mg/dl (2.5-4.5); Potassium 4.2 mmol/L (3.5-5.1); Sodium 142 mmol/L (135-145); eGFR > 60.00
[2024-01-18] MEDS: PLAVIX 75 MG PO (08:03)
[2024-01-18] MEDS: PEPCID 20 MG PO ×2 (08:03→19:47)
[2024-01-18] MEDS: LOW STRENGTH ASPIRIN 81 MG PO (08:04)
--- NOTE | 2024-01-18 08:26 | W.PN.HOSP.TC ---
Today's Communication/Plan
-
Cardiac cath
Assessment / Plan
Assessment / Plan
Gen-AAOx3, NAD
HEENT-NC, AT, anicteric, clear oral mm
Neck-supple
CV-reg, no M, +S1/S2
Lungs-clear B/L
Abd-soft, NT, ND
Ext-no edema
Musculoskeletal-no cyanosis, clubbing
Skin-warm and dry
Neuro-grossly non-focal
Psych-calm, cooperative
N-STEMI
- continue IVU Care
- trops peaked at 0.771
- continue ASA/Plavix
- continue statin; LDL 76
- continue Nitro drip; >24 hours chest pain free
- continue heparin drip - requires intensive monitoring of PTT levels
- Echo Thursday
For cardiac cath today.
Nitroglycerin induced headache -try to wean off nitroglycerin drip.
Epigastric discomfort
- continue GI cocktail/Pepcid
Essential HTN
- ARB/BB
Hyperlipidemia- statin
Possible mixed connective tissue disorder
- on Plaquenil
DVT ppx: IV Heparin
Code: Full
Anticipated Discharge: Within 24 hours
Subjective/Interval History
-
Date of Service: January 18, 2024
Patient seen and examined. Complaining of headache.
Objective Data
-
Labs:
Laboratory Results
01/18/24
03:29
WBC 5.6
Hgb 10.9 L
Hct 31.4 L
Plt Count 281
APTT 105.0 H
Sodium 142
Potassium 4.2
Chloride 108 H
Carbon Dioxide 24
BUN 8
Creatinine 0.6
Glucose 105 H
Calcium 8.6
Vital Signs:
Vital Signs
Temp Pulse Resp BP Pulse Ox
98.0 F 74 16 122/83 96
01/18/24 07:40 01/18/24 08:00 01/18/24 07:40 01/18/24 07:39 01/18/24 07:40
I&O
01/17/24 01/18/24 01/19/24
06:59 06:59 06:59
Intake Total 123.6 / 123.6 603.6 / 603.6
Output Total 1150 / 1150
Balance -1026.4 / -1026.4 603.6 / 603.6
Review of Systems
-
History Source: Patient
All other systems: Reviewed and negative
--- NOTE | 2024-01-18 10:01 | PTCARENOTE ---
Pt AOx3, no complaints of pain or discomfort. SR on tele monitor, VS stable. Heparin and nitro gtt infusing per protocol. NPO for laboratory worker today. Call clark within reach.
--- NOTE | 2024-01-18 11:21 | PTCARENOTE ---
pt left to vat house laborer. report given to Wes FOWLER. Brother waiting in room.
--- NOTE | 2024-01-18 11:53 | W.PN.CD ---
Today's Communication / Plan
-
Cardiac catheterization today.
Impression / Plan
-
Impression/Plan: 68 y/o female with remote history of PSVT (not AF, not on AC), HTN and HLD admitted with NSTEMI.
#NSTEMI
-Acute.
-Patient with intermittent episodes of chest discomfort starting at 3 PM 01/15/2024 Initial symptoms were with exertion but patient since developed some episodes with rest.
-Peak troponin 0.7.
-Cardiac catheterization today with ad hoc PCI.
-The patient is currently on DAPT.
-High dose, high potency statin.
#Back flank and epigastric pain.
-Separate type of discomfort that she is seeing her manager enterprise.
-Patient thinks it is musculoskeletal.
-PPI added 01/16/2024.
#Hypertension
-Chronic, stable.
-Continue to monitor on current therapy.
-Candasartan stopped to allow room for nitro.
#Hypercholesterolemia
-Chronic, stable.
-Continue statin.
-Goal LDL < 55.
#Mixed connective tissue disorder
Subjective/Interval History:
No acute events.
No subjective complaints.
DATA:
Abdominal/Pelvis CT, 01/17/2024:
IMPRESSION:
There is diffuse gastric thickening which can be seen with gastritis.
No evidence of renal calculus. No hydronephrosis.
Colonic diverticulosis without evidence of acute diverticulitis.
Physical Exam
Vital Signs/Labs
Vital Signs
Temp Pulse Resp BP Pulse Ox
36.7 C 74 16 122/83 96
01/18/24 07:40 01/18/24 08:00 01/18/24 07:40 01/18/24 07:39 01/18/24 07:40
01/16/24 01/17/24 01/18/24
11:59 11:59 11:59
Actual Weight 63.1 kg 60.4 kg 59.8 kg
01/18/24 03:29
01/18/24 03:29
APTT 105.0 Sec (23.4-35.0) H 01/18/24 03:29
Triglycerides 125 mg/dl (10-149) 01/16/24 06:03
LDL Cholesterol, Calc 76 mg/dl 01/16/24 06:03
VLDL Cholesterol, Calc 25 mg/dl (0-30) 01/16/24 06:03
HDL Cholesterol 36 mg/dl 01/16/24 06:03
01/15/24
23:13
Cks-J-Jvwllfewzgw Pept 166
LAB Results
01/15/24 01/16/24 01/16/24
23:13 02:18 06:03
Troponin I 0.020 0.418 H* D 0.647 H* D
01/16/24 01/16/24 01/16/24
09:33 15:24 20:44
Troponin I 0.771 H* 0.679 H* 0.421 H* D
01/17/24
09:39
Troponin I 0.269 H*
Physical Exam
Constitutional: No acute distress and Comfortable
EENT: Anicteric and Moist mucous membranes
Cardiovascular: Rhythm & rate is regular, Pedal edema is absent, JVD pressure is normal, S1S2 is normal and Murmur/rub/gallop absent
Respiratory: Respiratory effort normal, Lungs clear to auscul., Wheeze Absent, Crackles Absent and Rhonchi Absent
GI: Soft, Distention absent, Flat, Non tender and Normal bowel sounds
Neuro/Psych: AO x 3
Data Reviewed
-
Date of Service: January 18, 2024
Medical Decision Making: Reviewed Test Results, Independent Historian Assessment and Test Interpretation
EKG: Tracing Personally Visualized and interpreted and Report Reviewed by me
Echo: Tracing Personally Visualized and interpreted and Report Reviewed by me
X-Ray/CT/US/MRI/NUC/PET: Image Personally Visualized and interpreted and Report Reviewed by me
Medical Tests (PFT, Pathology etc): Image Personally Visualized and interpreted and Report Reviewed by me
Labs: Labs Reviewed by me
[2024-01-18 13:03] LABS: ACT-LR - POC 282 Seconds (116-155)
--- NOTE | 2024-01-18 14:09 | PTCARENOTE ---
Pt arrived back from rags laborer. Right radial site CDI. TR band intact. Educated pt on restrictions and expected OOB time. SR on tele monitor. VSS. Call clark within reach.
--- NOTE | 2024-01-18 14:12 | ITS.CL.ANGIO ---
Sample Maker Original - Angioplasty
Angioplasty
Procedure Report:
CARDIAC CATHETERIZATION REPORT
Date of Procedure: 01/18/2024
Referring: Chance Fisher M.D.
INDICATION: Non-ST elevation myocardial infarction.
PROCEDURE:
1. Left heart catheterization.
2. Coronary angiography.
3. Successful percutaneous transluminal coronary angioplasty of the LAD.
4. Successful intracoronary lithotripsy of the LAD.
5. Successful IVUS interrogation of the LAD for vessel sizing.
6. Successful PCI of the proximal and mid LAD with 3 overlapping stents.
ACCESS:
6 Cam[place]onian right radial artery.
CATHETERS:
1. 5 [place]onian JR4.
2. 5 [place] JL 3.5.
6 [place]onian EBU 3.5 guiding catheter.
HEMODYNAMIC DATA
Weight (kg): 59.4
AO (s/d/x, mmHg): 129/77/101
LV (s/x mmHg): 133/6
LEFT VENTRICULOGRAPHY: Not performed.
CORONARY ANGIOGRAPHY
Dominance: Right.
Left Main: Normal size, bifurcating vessel. There is no coronary artery disease.
LAD: Large size vessel giving rise to 2 small diagonals before wrapping around the apex of the left ventricle. There is a 70% lesion in the proximal LAD leading into a 95% subtotal occlusion of the mid LAD with JAH II flow, and a separate, 70%
lesion in the mid LAD.
Ramus: Congenitally absent.
Circumflex: Normal size, nondominant vessel giving rise to 2 obtuse marginals. Both obtuse marginals are severely tortuous, but there is no coronary artery disease.
RCA: Normal size vessel with an anterior takeoff and a 90% lesion in the mid vessel.
INTERVENTION(S)
1. Successful PTCA of the 95% subtotal occlusion (Medtronic Euphora 2.0 x 12 semicompliant balloon, Medtronic Euphora 2.5 x 15 noncompliant balloon) with reduction in stenosis to 50%, restoring JAH-3 flow.
2. Successful IVUS interrogation of the proximal LAD due to inability to pass the catheter into the mid LAD.
3. Successful intracoronary lithotripsy of the proximal and mid LAD (shockwave 3.0 x 12 coronary lithotripsy balloon).
4. Successful IVUS interrogation of the entire proximal and mid LAD for vessel sizing.
5. Successful direct stenting of the 70% mid LAD lesion (Xience Skypoint 2.5 x 15 JAIME, postdilated with a 2.5 NC balloon) with reduction in stenosis to 0%, maintaining JAH-3 flow.
6. Successful PCI of the 95% mid LAD lesion (Xience Skypoint 2.75 x 38 JAIME overlapping with the previous mid LAD stent, postdilated with a 2.75 x 20 NC balloon throughout and a 3.25 x 15 NC balloon in the proximal margin), with reduction in
stenosis to 0%, maintaining JAH-3 flow.
7. Successful PCI of the 70% proximal LAD lesion (Xience Skypoint 3.5 x 12 JAIME overlapping with the 2.75 x 38 mid LAD stent, postdilated with a 3.5 NC balloon at the overlap and in the proximal margin) with reduction in stenosis to 0%, maintaining
JAH-3 flow in the body of the vessel but with partial occlusion of the small first diagonal with JAH II flow.
8. Successful IVUS interrogation of the entire stented segment.
Narrative:
The decision was made to proceed with percutaneous coronary intervention. The diagnostic catheter was removed over a wire and a 6Fr EBU 3.5 guiding catheter was advanced to the aortic root and seated in the left main coronary artery. Additional
heparin was given and a Power Turn Flex wire was advanced into the distal LAD. The 2.0 x 12 semicompliant balloon was advanced to the subtotal mid LAD lesion, but would not advanced without causing significant guide disengagement. A 6 Cam[place]onian guide
liner was advanced for support, which subsequently allowed the balloon to traverse the subtotal lesion. The 95% subtotal mid LAD lesion was predilated with a 2.0 x 12 semi-compliant balloon to 12 barrett, restoring JAH-3 flow.
The decision was made to perform intracoronary imaging. An IVUS catheter was advanced through the guiding catheter and into the ostium of the artery. Ring down was performed once the imaging crystal was no longer inside of the guiding catheter. The
IVUS catheter was advanced into the proximal and mid LAD. Unfortunately, the IVUS catheter would not progress beyond the previously dilated mid LAD lesion. Intravascular ultrasound was performed in a retrograde fashion using a slow pullback.
Intracoronary imaging demonstrated significant atherosclerosis in the mid and proximal vessel, including an underappreciated, densely calcified lesion in the proximal LAD.
A 2.5 x 15 semicompliant balloon was advanced into the mid LAD and the 95% mid LAD subtotal lesion was predilated to 16 barrett. A Shockwave 3.0 x 12 coronary lithotripsy balloon was advanced over the wire and into the mid LAD lesion. The balloon was
sterilely connected to the controller and prepped to negative pressure. Meticulous care was taken while positioning the shockwave balloon. Once in satisfactory position, the balloon was inflated to 4 barrett. After confirming good contact with the
vessel wall, 10 pulses were delivered. After delivering 10 pulses, the balloon was inflated to 6 barrett then deflated. The entire proximal and mid LAD was treated in a similar manner for total of 12 rounds. After exhausting the shockwave balloon,
the balloon was withdrawn and the IVUS catheter was reintroduced into the LAD. Intracoronary imaging demonstrated significant stenosis at the angiographic 70% mid LAD lesion, a generally disease mid LAD with confirmed significant proximal
calcification and stenosis.
The IVUS catheter was removed and a Xience Skypoint 2.5 x 15 drug-eluting stent was advanced into the 70% mid LAD lesion. The stent was deployed at 9 atmospheres. The stent balloon was removed. A 2.5 x 12 noncompliant balloon was advanced into the
stent and the stent was postdilated to 16 atmospheres.
The stent balloon was withdrawn and a Xience Skypoint 2.75 x 38 JAIME stent was advanced. Meticulous care was taken while positioning the stent with the distal aspect overlapping the 2.5 x 15 mid LAD stent. We were satisfied with our position, the
stent was deployed to 12 barrett. The stent balloon was withdrawn. A 2.75 x 20 NC balloon was advanced. The overlap and distal aspect of the 2.75 mm stent was postdilated to 12 barrett. The midportion of the stent was postdilated to 14 barrett. The
proximal stent was postdilated to 16 barrett. The noncompliant balloon was removed and a 3.25 x 15 noncompliant balloon was advanced. The proximal margin of the stent was dilated to 12 barrett.
The noncompliant balloon was withdrawn and a Xience Skypoint 3.5 x 12 drug-eluting stent was advanced. Meticulous care was taken while positioning the stent with the distal aspect overlapping the proximal aspect of the most recent stents. We were
satisfied with this position, the stent was deployed to 12 barrett. Stent balloon was removed and a 3.5 x 12 noncompliant balloon was advanced. The stent overlap in the proximal margin of this proximal LAD stent were postdilated to 12 barrett.
IVUS was repeated showing good stent apposition and expansion throughout the entire stented segment.
Angiography was performed in orthogonal views, confirming good stent expansion and an excellent angiographic result. We did observe that there was now JAH II flow in the first diagonal. The patient did not report any resting chest pain with this
abnormality. The power turn flex wire was withdrawn into the proximal stented segment and redirected into the first diagonal with relative ease, showing that the artery was relatively percutaneously accessible. I suspect that this was due to
unfavorable plaque shift with some degree of spasm and will recover spontaneously. The coronary wire was withdrawn and the guide was disengaged from the artery. The catheter was removed over a standard J-wire.
Closure Device: Vascular band.
Radiation (mGy): 936.70
DAP (cm2.Gy): 43.4889
Fluoroscopy time (minutes): 24.2
Sedation time (minutes): 100
CONCLUSIONS
1. Right dominant circulation with an anterior takeoff and a 90% lesion in the mid RCA, a 70% lesion in the proximal LAD leading into a 95% subtotal occlusion of the mid LAD with JAH II flow and a separate, 70% mid LAD lesion.
2. Now status post successful IVUS guided coronary lithotripsy (shockwave 3.0 x 12 coronary lithotripsy balloon) and PCI of the entire proximal and mid LAD diseased segments with 3 overlapping stents (Xience Skypoint 2.5 x 15 JAIME postdilated with a
2.5 NC balloon, 2.75 x 38 JAIME postdilated with a 2.75 NC balloon throughout and 3.25 NC balloon in the proximal margin, 3.5 x 12 JAIME postdilated with a 3.5 NC balloon at the overlap and proximal margin) with reduction in stenosis to 0%, restoring
JAH-3 flow in the main vessel with partial occlusion of the small first diagonal with JAH II flow.
3. Normal filling pressures (LVEDP = 6 mmHg at 59.4 kg).
RECOMMENDATIONS:
1. Expectant management after cardiac catheterization via right radial approach.
2. Limited weight bearing on the right wrist for one week.
3. Dual antiplatelet therapy with aspirin and clopidogrel for at least 12 months, followed by aspirin indefinitely. Given the amount of stented segment, the patient may benefit from lifelong antiplatelet therapy.
4. Plan for staged PCI of the mid RCA lesion on 01/20/2024.
5. Guideline directed medical therapy as hemodynamics will tolerate.
6. Aggressive secondary prevention with high-dose, high potency statin. Goal LDL <55.
7. Echocardiogram ordered and pending.
8. Referral to cardiac rehab.
Copy to: Chance Fisher M.D., Jessica He D.O.
Royer Jim DO, FACC, FACP
--- NOTE | 2024-01-18 15:24 | CM ---
Chart reviewed. Patient is independent of ADLS, lives with her mom in a 2 STH, 1 CATHRYN, 0 DME. Plan is for the patient to return home. CM to follow
[2024-01-18] MEDS: PLAQUENIL 300 MG PO (15:45)
--- NOTE | 2024-01-18 20:50 | PTCARENOTE ---
Received patient at change of shift. Patient awake, alert, and oriented in bed. Right radial site intact-- small spot of oozing-- marked by RN. Ecchymotic, but no hematoma. BP 124/79, NSR 75, 97% on room air. Patient has slight discomfort in chest
(2/) but has had pain since cath and has not changed. Agreed to notify RN of any changes in pain. Call clark within reach.
[2024-01-18] MEDS: CRESTOR 20 MG PO (22:03)
[2024-01-18] MEDS: EVISTA 60 MG PO (22:03)
[2024-01-18] MEDS: TOPROL XL 75 MG PO (22:03)
[2024-01-18] MEDS: EFFEXOR XR 150 MG PO (22:05)
--- NOTE | 2024-01-18 22:31 | PTCARENOTE ---
Addendum entered by Yuni Connor RN 01/19/24 02:30:
Patient no longer complaining of chest pain post morphine.
Original Note:
Patient c/o increased middle chest pain radiating to back and left scapula (-07/14). It has been 'steadily increasing since cath.' EKG completed. Discussed with FRANCOISE Mensah-- ordered morphine-- see JUN. BP 149/94, NSR 70s.
[2024-01-18] MEDS: MORPHINE SULFATE 1 MG IV (22:47)
[2024-01-19] VITALS (7 sets, daily range): BP systolic 106–133; BP diastolic 63–70; BMI 21.5
[2024-01-19 04:41] LABS: Hematocrit 31.4 % (37.0-47.0); Hemoglobin 10.8 g/dL (12.0-16.0); Mean Corp Hgb Conc. 34.4 g/dL (33.0-37.0); Mean Corpuscular Hgb 31.9 pg (27.0-31.0); Mean Corpuscular Volume 92.6 fL (81.0-99.0); Mean Platelet Volume 10.5 fL (7.4-10.4); Platelet Count 266 10^3/uL (130-400); Red Blood Cell Count 3.39 10^6/uL (4.20-5.40); Red Cell Dist. Width 12.7 % (11.5-14.5); White Blood Cell Count 5.3 10^3/uL (4.8-10.8)
[2024-01-19 05:02] LABS: Blood Urea Nitrogen 10 mg/dl (7-17); Calcium 8.8 mg/dl (8.4-10.2); Carbon Dioxide 24 mmol/L (22-30); Chloride 107 mmol/L (98-107); Estimated Creatinine Clearance 72 ml/min; Glucose 93 mg/dl (70-99); Potassium 4.4 mmol/L (3.5-5.1); Sodium 141 mmol/L (135-145); eGFR > 60.00
--- NOTE | 2024-01-19 07:00 | PTCARENOTE ---
report received from previous RN at change of shift. AAOX3. right radial site eccymotic. SR on telemetryu heart rate 60-70s. pulses palpable. no edema. pt on room air, sat 98%. lung sounds clear. active bowel sounds. voiding in bathroom. pt updated
on plan of care. see worklist for full nursing assessment and interventions
[2024-01-19] MEDS: PLAQUENIL 300 MG PO (07:41)
[2024-01-19] MEDS: PLAVIX 75 MG PO (07:41)
[2024-01-19] MEDS: PEPCID 20 MG PO ×2 (07:41→19:38)
[2024-01-19] MEDS: LOW STRENGTH ASPIRIN 81 MG PO (07:41)
[2024-01-19 08:31] LABS: ACT-LR - POC > 397 Seconds (116-155)
--- NOTE | 2024-01-19 09:32 | W.CARD.POSTP ---
Post PCI Follow Up
Procedure
Procedure/Date: 01/18/24:
1. Right dominant circulation with an anterior takeoff and a 90% lesion in the mid RCA, a 70% lesion in the proximal LAD leading into a 95% subtotal occlusion of the mid LAD with JAH II flow and a separate, 70% mid LAD lesion.
2. Now status post successful IVUS guided coronary lithotripsy (shockwave 3.0 x 12 coronary lithotripsy balloon) and PCI of the entire proximal and mid LAD diseased segments with 3 overlapping stents (Xience Skypoint 2.5 x 15 JAIME postdilated with a
2.5 NC balloon, 2.75 x 38 JAIME postdilated with a 2.75 NC balloon throughout and 3.25 NC balloon in the proximal margin, 3.5 x 12 JAIME postdilated with a 3.5 NC balloon at the overlap and proximal margin) with reduction in stenosis to 0%, restoring
JAH-3 flow in the main vessel with partial occlusion of the small first diagonal with JAH II flow.
3. Normal filling pressures (LVEDP = 6 mmHg at 59.4 kg).
Subjective:
Denies cp, sob this am
Site
Site: Radial: Right and No ht/bleeding, distal pulses palpable (small area of swelling and ecchymosis proximal to puncture site)
Tele / EKG
SR no sig ectopy
Labs
01/19/24 04:00
01/19/24 04:00
APTT 105.0 Sec (23.4-35.0) H 01/18/24 03:29
Triglycerides 125 mg/dl (10-149) 01/16/24 06:03
LDL Cholesterol, Calc 76 mg/dl 01/16/24 06:03
VLDL Cholesterol, Calc 25 mg/dl (0-30) 01/16/24 06:03
HDL Cholesterol 36 mg/dl 01/16/24 06:03
01/15/24
23:13
Bat-O-Cnghsffgbcd Pept 166
DAPT Medication
DAPT Medication: Aspirin 81mg daily and Clopidogrel 75 mg daily
Plan
Post Lithotripsy and PCI x3 overlapping LAD stents 01/17
Residual RCA stenosis for PCI 01/19, NPO in am and IV hydration ordered
DAPT ASA/Plavix
f/u cbc [employer] in 2 weeks
--- NOTE | 2024-01-19 10:39 | W.PN.HOSP.TC ---
Today's Communication/Plan
-
N.p.o. after midnight
Assessment / Plan
Assessment / Plan
Gen-AAOx3, NAD
HEENT-NC, AT, anicteric, clear oral mm
Neck-supple
CV-reg, no M, +S1/S2
Lungs-clear B/L
Abd-soft, NT, ND
Ext-no edema
Musculoskeletal-no cyanosis, clubbing
Skin-warm and dry
Neuro-grossly non-focal
Psych-calm, cooperative
N-STEMI -underwent left heart catheterization yesterday, successful angioplasty of LAD, intracoronary lithotripsy of LAD, PCI of the proximal and mid LAD with 3 overlapping stents.
- continue IVU Care
- trops peaked at 0.771
- continue ASA/Plavix
- continue statin; LDL 76
- continue Nitro drip; >24 hours chest pain free
- continue heparin drip - requires intensive monitoring of PTT levels
- Echo showed LVEF 60 to 65%, mild MR, trace TR. Trace AR.
For redo catheterization tomorrow per cardiology.
Nitroglycerin induced headache -try to wean off nitroglycerin drip.
Epigastric discomfort
- continue GI cocktail/Pepcid
Essential HTN
- ARB/BB
Hyperlipidemia- statin
Possible mixed connective tissue disorder
- on Plaquenil
DVT ppx: IV Heparin
Code: Full
Anticipated Discharge: 24 - 48 hours
Subjective/Interval History
-
Date of Service: January 19, 2024
Patient seen and examined. No complaints.
Objective Data
-
Labs:
Laboratory Results
01/19/24
04:00
WBC 5.3
Hgb 10.8 L
Hct 31.4 L
Plt Count 266
Sodium 141
Potassium 4.4
Chloride 107
Carbon Dioxide 24
BUN 10
Creatinine 0.7
Glucose 93
Calcium 8.8
Vital Signs:
Vital Signs
Temp Pulse Resp BP Pulse Ox
98.2 F 70 16 111/70 100
01/19/24 08:19 01/19/24 03:50 01/19/24 03:50 01/19/24 03:50 01/19/24 08:19
I&O
01/18/24 01/19/24 01/20/24
06:59 06:59 06:59
Intake Total 603.6 / 603.6
Balance 603.6 / 603.6
Review of Systems
-
History Source: Patient
All other systems: Reviewed and negative
--- NOTE | 2024-01-19 11:13 | CM ---
Chart reviewed. Patient is independent of ADLS, lives with her mom in a 2 ST, 1 CATHRYN, 0 DME. 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 Plan is for the patient to return home. CM to follow
--- NOTE | 2024-01-19 11:25 | W.PN.CD ---
Today's Communication / Plan
-
PCI to RCA tomorrow, npo at wa
Impression / Plan
-
Impression/Plan: 68 y/o female with remote history of PSVT (not AF, not on AC), HTN and HLD admitted with NSTEMI, s/p PCI to LAD 01/17 with planned staged revascularization of RCA 01/19.
#NSTEMI
-Acute.
-Patient with intermittent episodes of chest discomfort starting at 3 PM 01/15/2024 Initial symptoms were with exertion but patient since developed some episodes with rest.
-Peak troponin 0.7.
-s/p sucessfull PCI to LAD with Shockwave lithotripsy, with residual non-culprit RCA disease
-cont. DAPT with asa/plavix
-High dose, high potency statin for goal LDL<55
-staged revascularization of RCA planned for 01/19; IV hydration before
#Back flank and epigastric pain.
-Separate type of discomfort that she is seeing her icu specialist.
-Patient thinks it is musculoskeletal.
-PPI added 01/16/2024.
#Hypertension
-Chronic, stable.
-Continue to monitor on current therapy.
-cont. home candesartan
#Hypercholesterolemia
-Chronic, stable.
-Continue statin.
-Goal LDL < 55.
#Mixed connective tissue disorder
Subjective/Interval History:
No acute events.
No subjective complaints.
DATA:
Abdominal/Pelvis CT, 01/17/2024:
IMPRESSION:
There is diffuse gastric thickening which can be seen with gastritis.
No evidence of renal calculus. No hydronephrosis.
Colonic diverticulosis without evidence of acute diverticulitis.
Echo 01/18/24
Normal left ventricular size, wall thickness and systolic function.
LV ejection fraction is 60-65% .
Trace tricuspid regurgitation.
Mild mitral regurgitation.
Trace aortic regurgitatio
Cath 01/19/24
1. Right dominant circulation with an anterior takeoff and a 90% lesion in the mid RCA, a 70% lesion in the proximal LAD leading into a 95% subtotal occlusion of the mid LAD with JAH II flow and a separate, 70% mid LAD lesion.
2. Now status post successful IVUS guided coronary lithotripsy (shockwave 3.0 x 12 coronary lithotripsy balloon) and PCI of the entire proximal and mid LAD diseased segments with 3 overlapping stents (Xience Skypoint 2.5 x 15 JAIME postdilated with a
2.5 NC balloon, 2.75 x 38 JAIME postdilated with a 2.75 NC balloon throughout and 3.25 NC balloon in the proximal margin, 3.5 x 12 JAIME postdilated with a 3.5 NC balloon at the overlap and proximal margin) with reduction in stenosis to 0%, restoring
JAH-3 flow in the main vessel with partial occlusion of the small first diagonal with JAH II flow.
3. Normal filling pressures (LVEDP = 6 mmHg at 59.4 kg).
Physical Exam
Vital Signs/Labs
Vital Signs
Temp Pulse Resp BP Pulse Ox
36.8 C 70 16 111/70 100
01/19/24 08:19 01/19/24 03:50 01/19/24 03:50 01/19/24 03:50 01/19/24 08:19
01/18/24 01/19/24 01/20/24
06:59 06:59 06:59
Actual Weight 59.8 kg 59.4 kg
01/19/24 04:00
01/19/24 04:00
APTT 105.0 Sec (23.4-35.0) H 01/18/24 03:29
Triglycerides 125 mg/dl (10-149) 01/16/24 06:03
LDL Cholesterol, Calc 76 mg/dl 01/16/24 06:03
VLDL Cholesterol, Calc 25 mg/dl (0-30) 01/16/24 06:03
HDL Cholesterol 36 mg/dl 01/16/24 06:03
01/15/24
23:13
Pkv-O-Mxemuqewqre Pept 166
LAB Results
01/16/24 01/16/24 01/17/24
15:24 20:44 09:39
Troponin I 0.679 H* 0.421 H* D 0.269 H*
Physical Exam
Constitutional: No acute distress
Cardiovascular: Rhythm & rate is regular
Respiratory: Respiratory effort normal
Neuro/Psych: AO x 3
Data Reviewed
-
Date of Service: January 19, 2024
EKG: Tracing Personally Visualized and interpreted
Echo: Tracing Personally Visualized and interpreted
X-Ray/CT/US/MRI/NUC/PET: Image Personally Visualized and interpreted
Labs: Labs Reviewed by me
[2024-01-19] MEDS: TYLENOL 650 MG PO (17:52)
[2024-01-19] MEDS: TOPROL XL 75 MG PO (19:38)
--- NOTE | 2024-01-19 21:41 | PTCARENOTE ---
Received patient at shift change. SR on the monitor, HR in the 80s. Pt had a 15 beat run of SVT and experienced a fluttering in her chest, HS Toprol administered as per JUN. Patient verbalizes understanding of plan of care including being NPO at
midnight. No complaints from pt at this time, call clark within reach.
[2024-01-19] MEDS: ATACAND 8 MG PO (22:50)
[2024-01-19] MEDS: CRESTOR 20 MG PO (22:50)
[2024-01-19] MEDS: EVISTA 60 MG PO (22:50)
[2024-01-19] MEDS: EFFEXOR XR 150 MG PO (22:51)
[2024-01-20] VITALS (9 sets, daily range): BP systolic 118–130; BP diastolic 66–81; BMI 21.4
--- NOTE | 2024-01-20 03:58 | DOWNTIME ---
There was a [email or web address] Time Salesperson Downtime on 01/20/2024 from 0100 to 01/20/2024 at 0355. Downtime documentation of patient's care, including medication administrations, has been reconciled in the electronic record per guidelines. Refer to the
patient's paper chart under the miscellaneous tab to see printed paper medication records and downtime forms.
--- NOTE | 2024-01-20 08:15 | PTCARENOTE ---
Assumed care of pt from prev nsg shift, pt AAOx3 w/no c/o CP or SOB. Pt's VS stable w/HR in the 80's, BP this AM 120/74. Pt is SR on telemetry monitoring. Pt w/R radial access site PERFECTO w/some purple ecchymosis. Plan of care discussed w/pt. Pt w/call
clark within reach & no addtl needs at this time.
[2024-01-20] MEDS: PLAQUENIL 300 MG PO (09:07)
[2024-01-20] MEDS: PLAVIX 75 MG PO (09:07)
[2024-01-20] MEDS: LOW STRENGTH ASPIRIN 81 MG PO (09:08)
--- NOTE | 2024-01-20 09:22 | W.PN.HOSP.TC ---
Addendum entered and electronically signed by Go Guerra DO 01/20/24 13:22:
I spoke with cardiology, Dr. Willingham.
He is okay with discharge this afternoon if right upper extremity arterial ultrasound is okay. Reason for this test is for right radial artery tenderness after cardiac catheterization.
Original Note:
Today's Communication/Plan
-
Stop Pepcid
Protonix
Cardiac cath
Assessment / Plan
Assessment / Plan
Gen-AAOx3, NAD
HEENT-NC, AT, anicteric, clear oral mm
Neck-supple
CV-reg, no M, +S1/S2
Lungs-clear B/L
Abd-soft, NT, ND
Ext-no edema
Musculoskeletal-no cyanosis, clubbing
Skin-warm and dry
Neuro-grossly non-focal
Psych-calm, cooperative
NSTEMI -underwent left heart catheterization 01/17, successful angioplasty of LAD, intracoronary lithotripsy of LAD, PCI of the proximal and mid LAD with 3 overlapping stents.
- continue IVU Care
- trops peaked at 0.771
- continue ASA/Plavix
- continue statin; LDL 76
- continue Nitro drip; >24 hours chest pain free
- continue heparin drip - requires intensive monitoring of PTT levels
- Echo showed LVEF 60 to 65%, mild MR, trace TR. Trace AR.
For repeat catheterization today for RCA disease.
Epigastric discomfort -unclear etiology. Will discontinue famotidine and start Protonix twice daily. Recommend outpatient follow-up with PCP. Reportedly had EGD many years ago that was unremarkable. CT abdomen/pelvis done a few days ago showed
gastritis.
Essential HTN
- ARB/BB
Hyperlipidemia- statin
Possible mixed connective tissue disorder
- on Plaquenil
Code: Full
Anticipated Discharge: Within 24 hours
Subjective/Interval History
-
Date of Service: January 20, 2024
Patient seen and examined. Complaining of mild epigastric discomfort when lying down, improved with sitting up.
Objective Data
-
Vital Signs:
Vital Signs
Temp Pulse Resp BP Pulse Ox
98.5 F 81 20 120/74 97
01/20/24 07:03 01/20/24 07:15 01/20/24 07:03 01/20/24 07:15 01/20/24 07:15
I&O
01/19/24 01/20/24 01/21/24
06:59 06:59 06:59
Intake Total 480 / 480
Balance 480 / 480
Review of Systems
-
History Source: Patient
All other systems: Reviewed and negative
[2024-01-20] MEDS: PEPCID PO (09:23)
[2024-01-20] MEDS: NSS 178 ML IV (09:37)
[2024-01-20] MEDS: FLUSH (NSS) 1 FLUSH IV (09:37)
--- NOTE | 2024-01-20 10:12 | PTCARENOTE ---
Report given to Chantelle in the labor representative; NSS IVF bolus hung as ordered pre-cath. Pt taken in her bed to labeler. Plan of care ongoing.
--- NOTE | 2024-01-20 10:30 | W.PN.CD ---
Addendum entered and electronically signed by Royer Jim DO 01/20/24 11:35:
S/P successful PCI to mRCA (Medtronic [place] 2.5 x 15 JAIME) via right femoral approach.
Monitor over the next 6 hours (she has to get her RUE US anyway).
If she remains stable, we can look to discharge in the late afternoon.
Original Note:
Today's Communication / Plan
-
Staged PCI of RCA today.
Right radial US.
Discharge planning.
Impression / Plan
-
Impression/Plan: 68 y/o female with remote history of PSVT (not AF, not on AC), HTN and HLD admitted with NSTEMI, s/p PCI to LAD 01/18/2024 with planned staged revascularization of RCA 01/20/2024.
#NSTEMI
-Acute.
-Patient with intermittent episodes of chest discomfort starting at 3 PM 01/15/2024 Initial symptoms were with exertion but patient since developed some episodes with rest.
-Peak troponin 0.7.
-s/p sucessfull PCI to LAD with Shockwave lithotripsy, with residual non-culprit RCA disease.
-Right radial tenderness. Check US to r/o pseudoanuerysm.
-Continue DAPT for at least one year.
-High dose, high potency statin for goal LDL < 55.
-Staged PCI of RCA today.
#Back flank and epigastric pain.
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
-Patient thinks it is musculoskeletal.
-PPI added 01/16/2024.
#Hypertension
-Chronic, stable.
-Continue to monitor on current therapy.
-cont. home candesartan
#Hypercholesterolemia
-Chronic, stable.
-Continue statin.
-Goal LDL < 55.
#Mixed connective tissue disorder
#Dispo
-IVU status.
-Full code.
-Discharge planning.
Subjective/Interval History:
No acute events.
No subjective complaints.
DATA:
Abdominal/Pelvis CT, 01/17/2024:
IMPRESSION:
There is diffuse gastric thickening which can be seen with gastritis.
No evidence of renal calculus. No hydronephrosis.
Colonic diverticulosis without evidence of acute diverticulitis.
Echo 01/18/24
Normal left ventricular size, wall thickness and systolic function.
LV ejection fraction is 60-65% .
Trace tricuspid regurgitation.
Mild mitral regurgitation.
Trace aortic regurgitatio
Cath 01/19/24
1. Right dominant circulation with an anterior takeoff and a 90% lesion in the mid RCA, a 70% lesion in the proximal LAD leading into a 95% subtotal occlusion of the mid LAD with JAH II flow and a separate, 70% mid LAD lesion.
2. Now status post successful IVUS guided coronary lithotripsy (shockwave 3.0 x 12 coronary lithotripsy balloon) and PCI of the entire proximal and mid LAD diseased segments with 3 overlapping stents (Xience [place] 2.5 x 15 JAIME postdilated with a
2.5 NC balloon, 2.75 x 38 JAIME postdilated with a 2.75 NC balloon throughout and 3.25 NC balloon in the proximal margin, 3.5 x 12 JAIME postdilated with a 3.5 NC balloon at the overlap and proximal margin) with reduction in stenosis to 0%, restoring
JAH-3 flow in the main vessel with partial occlusion of the small first diagonal with JAH II flow.
3. Normal filling pressures (LVEDP = 6 mmHg at 59.4 kg).
Physical Exam
Vital Signs/Labs
Vital Signs
Temp Pulse Resp BP Pulse Ox
36.9 C 81 20 120/74 97
01/20/24 07:03 01/20/24 07:15 01/20/24 07:03 01/20/24 07:15 01/20/24 07:15
01/18/24 01/19/24 01/20/24
11:59 11:59 11:59
Actual Weight 59.8 kg 59.4 kg 59.2 kg
01/19/24 04:00
01/19/24 04:00
APTT 105.0 Sec (23.4-35.0) H 01/18/24 03:29
Triglycerides 125 mg/dl (10-149) 01/16/24 06:03
LDL Cholesterol, Calc 76 mg/dl 01/16/24 06:03
VLDL Cholesterol, Calc 25 mg/dl (0-30) 01/16/24 06:03
HDL Cholesterol 36 mg/dl 01/16/24 06:03
01/15/24
23:13
Tsg-H-Ldnlebnefvw Pept 166
Physical Exam
Constitutional: No acute distress and Comfortable
EENT: Anicteric and Moist mucous membranes
Cardiovascular: Rhythm & rate is regular, Pedal edema is absent, JVD pressure is normal, S1S2 is normal and Murmur/rub/gallop absent
Respiratory: Respiratory effort normal, Lungs clear to auscul., Wheeze Absent, Crackles Absent and Rhonchi Absent
GI: Soft, Distention absent, Flat, Non tender and Normal bowel sounds
Neuro/Psych: AO x 3
Other: Cath Site (Right radial access site is mildly ecchymotic and tender.)
Data Reviewed
-
Date of Service: January 20, 2024
--- NOTE | 2024-01-20 11:18 | ITS.CL.ANGIO ---
Hand Inserter Operator - Angioplasty
Angioplasty
Procedure Report:
CARDIAC CATHETERIZATION REPORT
Date of Procedure: 01/20/2024
Referring: Chance Fisher M.D.
INDICATION: Staged PCI.
PROCEDURE:
1. Left heart catheterization.
2. Right coronary artery angiography.
3. Successful PCI of the mid RCA.
ACCESS:
6 Macedonian right common femoral artery using a modified Seldinger technique with a micropuncture kit under ultrasound guidance.
CATHETERS:
1. 6 [place]onian JR4 guiding catheter.
HEMODYNAMIC DATA
Weight (kg): 59.0
AO (s/d/x, mmHg): 145/79/107
LV (s/x mmHg): 145/10
LEFT VENTRICULOGRAPHY: Not performed.
CORONARY ANGIOGRAPHY
Dominance: Right.
Left Main: Not injected. Known to be a normal size, bifurcating vessel with no coronary artery disease.
LAD: Not injected. Known to be a large size vessel giving rise to 2 small diagonals, recently status post 3 overlapping stents for subtotal occlusion of the mid vessel.
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
Circumflex: Not injected. Known to be a normal size, nondominant vessel giving rise to 2 obtuse marginals with severe tortuosity but no coronary artery disease.
RCA: Normal size vessel with an anterior takeoff. There is a 90% lesion in the mid vessel.
INTERVENTION(S)
1. Successful PCI of the 90% mid RCA lesion (Medtronic [place] 2.5 x 15 JAIME, postdilated with a 2.5 NC balloon) with reduction in stenosis to 0%, maintaining JAH-3 flow.
Narrative:
The decision was made to proceed with percutaneous coronary intervention. A 6Fr JR4 guiding catheter was advanced to the aortic root and seated in the right coronary artery. Additional heparin was given and a Power Turn Flex wire was advanced into
the distal RCA. The 90% mid RCA lesion was predilated with a 2.0 x 12 semi-compliant balloon to 12 barrett. The semi-compliant balloon was removed and a Medtronic [place] 2.5 x 15 drug-eluting stent was advanced. The stent was deployed at 12
atmospheres. The stent balloon was removed. A 2.5 x 12 noncompliant balloon was advanced into the stent and the stent was postdilated to 16 atmospheres. Angiography was performed in orthogonal views, confirming good stent expansion and an excellent
angiographic result. The coronary wire was withdrawn and the guide was disengaged from the artery. The catheter was removed over a standard J-wire.
Closure Device: 6 Macedonian Angio-Seal.
Radiation (mGy): 183.31
DAP (cm2.Gy): 16.3358
Fluoroscopy time (minutes): 6.0
Sedation time (minutes): 34
CONCLUSIONS
1. Right dominant circulation with recent PCI to the proximal/mid LAD (overlapping Xience [place] 2.5 x 15 JAIME, 2.75 x 38 JAIME, 3.5 x 12 JAIME) and a 90% mid RCA lesion status post successful staged PCI (Medtronic [place] 2.5 x 15 JAIME,
postdilated with a 2.5 NC balloon) with reduction in stenosis to 0%, maintaining JAH-3 flow.
2. Normal filling pressures (LVEDP = 10 mmHg at 59.0 kg).
RECOMMENDATIONS:
1. Expectant management after cardiac catheterization via right common femoral approach.
2. Limited weight bearing for one week.
3. Continue dual antiplatelet therapy with aspirin and clopidogrel for at least 12 months.
4. Guideline directed medical therapy as hemodynamics will tolerate.
5. Aggressive secondary prevention with high-dose, high potency statin.
6. Referral to cardiac rehab.
Copy to: Chance Fisher M.D., Jessica He D.O.
Royer Jim DO, FACC, FACP
--- NOTE | 2024-01-20 11:28 | CM ---
Chart reviewed. Patient is going back to the clinical lab scientist for her PCI today. Patient is independent of ADLS, lives with her mom in a 2 sTH, 1 CATHRYN, 0 DME. Plan is to return home. CM to follow
--- NOTE | 2024-01-20 13:20 | W.DS.TRANS ---
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
-
Discharge Instructions:
Sleep Apnea Risk Intermediate
Discharge Diagnosis/Procedures NSTEMI, s/p lithotripsy with angioplasty and
stent x3 to Left Anterior Descending artery (
)
Angioplasty and stent x1 to Right Coronary
artery (01/19)
Diet Low Cholesterol,Low Fat
Activity No restrictions
Driving Restrictions As prior to admission
Bathing Restrictions None
Other Services Cardiac Rehab
Instructions:
Stand-Alone Forms: DC Instructions- Cath/EP Lab
Changes to Home Medications: No
Discharge Medications:
DC Medications w/original date entered in [employer]
metoprolol succinate 50 mg tablet,extended release 24 hr (Toprol XL) 75 mg PO HS 08/24/17
venlafaxine 75 mg capsule,extended release 24 hr 150 mg PO HS 08/24/17
candesartan 8 mg tablet 8 mg PO HS 10/03/23
rosuvastatin 20 mg tablet 20 mg PO HS 10/03/23
hydroxychloroquine 200 mg tablet (Plaquenil) 300 mg PO DAILY 01/16/24
raloxifene 60 mg tablet (Evista) 60 mg PO HS 01/16/24
aspirin 81 mg chewable tablet 81 mg PO DAILY #0 tabs 01/20/24
clopidogrel 75 mg tablet 75 mg PO DAILY #30 tabs 01/20/24
nitroglycerin 0.4 mg sublingual tablet 0.4 mg sublingual [id number] PRN chest pain #30 tabs 01/20/24
pantoprazole 40 mg tablet,delayed release 40 mg PO DAILY #30 tabs 01/20/24
Home Medication Changes
Pending Results: No
[2024-01-20] MEDS: TYLENOL 650 MG PO (17:14)
--- NOTE | 2024-01-20 17:15 | PTCARENOTE ---
Discussed D/C instructions w/pt & her brother. Pt's IV line & satellite project site monitor D/C'd. Pt taken out via wheelchair w/her brother driving her home.
[2024-01-21 23:09] LABS: ACT-LR - POC 363 Seconds (116-155)
== END 2024-01-20 17:55 | disposition home or self-care (01) | DRG 324 ==
LOC: IVU 04:02
PROVIDERS: Emergency Medicine; Internal Medicine; Internal Medicine Cardiovascular Disease; Nurse Practitioner; ADMITTING PHYSICIAN Internal Medicine; ATTENDING PHYSICIAN Hospitalist; CONSULT PHYSICIAN Internal Medicine Cardiovascular Disease; EMERGENCY PHYSICIAN Emergency Medicine; FAMILY PHYSICIAN Family Medicine
PROC: B240ZZ3 Ultrasonography of Single Coronary Artery, Intravascular (ICD-10-PCS; 2024-01-18)
PROC: 02F03ZZ Fragmentation in Coronary Artery, One Artery, Percutaneous Approach (ICD-10-PCS; 2024-01-18)
PROC: B211YZZ Fluoroscopy of Multiple Coronary Arteries using Other Contrast (ICD-10-PCS; 2024-01-18)
PROC: 027036Z Dilation of Coronary Artery, One Artery with Three Drug-eluting Intraluminal Devices, Percutaneous Approach (ICD-10-PCS; 2024-01-18)
PROC: 4A023N7 Measurement of Cardiac Sampling and Pressure, Left Heart, Percutaneous Approach (ICD-10-PCS; 2024-01-18)
PROC: B210YZZ Fluoroscopy of Single Coronary Artery using Other Contrast (ICD-10-PCS; 2024-01-20)
PROC: 027034Z Dilation of Coronary Artery, One Artery with Drug-eluting Intraluminal Device, Percutaneous Approach (ICD-10-PCS; 2024-01-20)
DX: I21.4 Non-ST elevation (NSTEMI) myocardial infarction (principal); M35.1 Other overlap syndromes; E78.00 Pure hypercholesterolemia, unspecified; I10 Essential (primary) hypertension; E11.9 Type 2 diabetes mellitus without complications; Z87.891 Personal history of nicotine dependence; Z88.2 Allergy status to sulfonamides; Z79.899 Other long term (current) drug therapy; Z79.69 Long term (current) use of other immunomodulators and immunosuppressants; Z82.49 Family history of ischemic heart disease and other diseases of the circulatory system
CPT/HCPCS: 71046; 74176; 80048; 80053; 80061; 80069; 81003; 83036; 83690; 83880; 84484; 85025; 85027; 85347; 85379; 85730; 92978; 93005; 93306; 93458; 93931; 96365; 99285; C1725; C1753; C1760; C1761; C1874; C1894; C9600; Q9967

== ENCOUNTER 2024-03-04 12:58 | Outpatient (RCR) | payer OTHER, MEDICARE, SELFPAY | END 2024-03-04 23:59 | disposition home or self-care (01) | LOC: CRHB 12:58 | PROVIDERS: ATTENDING PHYSICIAN Internal Medicine Cardiovascular Disease | DX: I25.10 Atherosclerotic heart disease of native coronary artery without angina pectoris (principal); Z95.5 Presence of coronary angioplasty implant and graft; I25.2 Old myocardial infarction | CPT/HCPCS: G0422; G0423 ==

== ENCOUNTER 2024-04-04 11:45 | Outpatient (RCR) | payer MEDICARE, OTHER, SELFPAY | END 2024-04-04 23:59 | disposition home or self-care (01) | LOC: CRHB 11:45 | PROVIDERS: ATTENDING PHYSICIAN Internal Medicine Cardiovascular Disease; FAMILY PHYSICIAN Family Medicine | DX: I25.10 Atherosclerotic heart disease of native coronary artery without angina pectoris (principal); Z95.5 Presence of coronary angioplasty implant and graft | CPT/HCPCS: G0422; G0423 ==

== ENCOUNTER 2024-05-06 11:35 | Outpatient (RCR) | payer MEDICARE, OTHER, SELFPAY | END 2024-05-06 23:59 | disposition home or self-care (01) | LOC: CRHB 11:35 | PROVIDERS: ATTENDING PHYSICIAN Internal Medicine Cardiovascular Disease; FAMILY PHYSICIAN Family Medicine | DX: I25.10 Atherosclerotic heart disease of native coronary artery without angina pectoris (principal); Z95.5 Presence of coronary angioplasty implant and graft; I25.2 Old myocardial infarction | CPT/HCPCS: G0422; G0423 ==

== ENCOUNTER 2024-06-03 11:19 | Outpatient (RCR) | payer MEDICARE, OTHER, SELFPAY | END 2024-06-03 23:59 | disposition home or self-care (01) | LOC: CRHB 11:19 | PROVIDERS: ATTENDING PHYSICIAN Internal Medicine Cardiovascular Disease; FAMILY PHYSICIAN Family Medicine | DX: I25.10 Atherosclerotic heart disease of native coronary artery without angina pectoris (principal); Z95.5 Presence of coronary angioplasty implant and graft | CPT/HCPCS: G0422; G0423 ==

== ENCOUNTER 2024-06-06 10:58 | Outpatient (RCR) | payer MEDICARE, OTHER, SELFPAY | END 2024-06-07 12:12 | disposition home or self-care (01) | LOC: CRHB 10:58 | PROVIDERS: ATTENDING PHYSICIAN Internal Medicine Cardiovascular Disease; FAMILY PHYSICIAN Family Medicine | DX: I25.10 Atherosclerotic heart disease of native coronary artery without angina pectoris (principal); Z95.5 Presence of coronary angioplasty implant and graft | CPT/HCPCS: G0422; G0423 ==

== ENCOUNTER 2024-09-24 18:55 | Emergency (ER) | payer MEDICARE, OTHER, SELFPAY ==
[2024-09-24 18:57] VITALS: BP 131/88
[2024-09-24 19:36] VITALS: BMI 18.2
[2024-09-24 19:46] VITALS: BP 107/62
[2024-09-24 19:48] LABS: % Basophils 0.5 % (0-2); % Eosinophils 0.8 % (0-6); % Immature Granulocytes 0.1 % (0-0.5); % Lymphocytes 15.2 % (20.5-51.1); % Monocytes 14.6 % (1.7-9.3); % Neutrophils 68.8 % (42.2-75.2); Absolute Eosinophils 0.1 10^3/uL (0-0.7); Absolute Lymphocytes 1.2 10^3/uL (1.2-3.4); Absolute Monocytes 1.1 10^3/uL (0.1-0.6); Absolute Neutrophils 5.3 10^3/uL (1.4-6.5); Hematocrit 31.1 % (37.0-47.0); Mean Corp Hgb Conc. 35.4 g/dL (33.0-37.0); Mean Corpuscular Hgb 31.5 pg (27.0-31.0); Mean Corpuscular Volume 89.1 fL (81.0-99.0); Mean Platelet Volume 10.1 fL (7.4-10.4); Nucleated Red Blood Cells % 0 %; Platelet Count 234 10^3/uL (130-400); Red Blood Cell Count 3.49 10^6/uL (4.20-5.40); Red Cell Dist. Width 11.9 % (11.5-14.5); White Blood Cell Count 7.7 10^3/uL (4.8-10.8)
[2024-09-24] MEDS: TYLENOL 1000 MG PO (19:51)
[2024-09-24] MEDS: NSS 1000 IV (19:52)
--- NOTE | 2024-09-24 19:53 | ED.GENMED ---
History of Present Illness
General
Chief Complaint: Abdominal Pain
Time Seen by Provider: 09/24/24 19:16
History of Present Illness
History of Present Illness:
69-year-old female with prior history of CAD status post stenting on Plavix, hyperlipidemia, hypertension, history of diverticulitis presenting for 2 days of left lower quadrant abdominal pain. She notes some mild discomfort yesterday, however
increased in intensity today. She called her doctor who sent her a prescription for antibiotics, however advised that she go to the hospital to ensure no complicating features. Denies fever. Denies diarrhea. Denies vomiting. Denies any history
of abdominal surgeries in the past. Denies chest pain or difficulty breathing. She denies additional acute medical complaint
Past History
Past History
ED Past Medical History: Negative Hypercholesterolemia, NIDDM or [place]
ED Past Surgical History: Negative Cardiac or Cholecystectomy
Social History
Tobacco: Non-smoker
Alcohol: None
Drug: None
Personal:
Living: with family
Employment: Employed
Family History
Family History: Other (Diverticulitis)
Phy Exam
Physical Exam
Physical Exam:
General: Well-appearing, no clinical signs of dehydration, nontoxic and in no acute distress
HEENT: protecting airway
Neck: appears supple
CV: Normal heart rate
Resp: No accessory muscle use, no increased work of breathing
Abd: Soft and non-distended, focal tenderness to the left lower quadrant without rebound or guarding
Extremities: No deformities, no swelling
Neuro: alert, no focal neurologic deficit
: deferred
Rectal: deferred
Psych: Normal affect
Skin: Intact
Course
Orders/Labs/Results
Orders:
Orders
09/24/24 19:28
CT Abd/pelvis W Iv Cont Urgent
Comment:
Reason For Exam: LLQ pain, suspected diverticulitis
09/24/24 19:41
0.9% Sodium Chloride 1000 ml [Nss] 1,000 ml IV BOLUS
Acetaminophen [Tylenol] 1,000 mg PO NOW STA
09/24/24 19:42
Complete Blood Count/With Diff Urgent
Comprehensive Metabolic Panel Urgent
Lipase Urgent
09/24/24 22:01
Amoxicillin 875 mg/Clav 125 mg [Augmentin 875 mg/125 mg] 1 tablet PO NOW STA
Abnormal Lab Results
09/24/24
19:42
RBC 3.49 L 10^6/uL
(4.20-5.40)
Hgb 11.0 L g/dL
(12.0-16.0)
Hct 31.1 L %
(37.0-47.0)
MCH 31.5 H pg
(27.0-31.0)
Absolute Monos (auto) 1.1 H 10^3/uL
(0.1-0.6)
Lymphocytes % 15.2 L %
(20.5-51.1)
Monocytes % 14.6 H %
(1.7-9.3)
09/24/24 19:42
09/24/24 19:42
Vital Signs
Initial and Last Documented VS:
Initial Vital Signs
Temp Pulse Resp BP Pulse Ox
99.4 F 77 16 131/88 97
09/24/24 18:57 09/24/24 18:57 09/24/24 18:57 09/24/24 18:57 09/24/24 18:57
Last Documented Vital Signs
Temp Pulse Resp BP Pulse Ox
99.4 F 68 17 99/59 97
09/24/24 18:57 09/24/24 21:56 09/24/24 21:56 09/24/24 21:56 09/24/24 21:56
MDM/Problems Addressed
MDM/Problems Addressed:
69-year-old female with prior history of diverticulitis presenting for left lower quadrant abdominal pain. Vital signs on arrival are normal.
On exam, patient nontoxic, no acute distress. Focal tenderness to the left lower quadrant. Ultimately suspect diverticulitis given patient's prior history. Given hemodynamic stability and reassuring examination, lower suspicion for complicating
features. Will plan for laboratory analysis and CT abdominal imaging.
22:00 - Patient's labs are unremarkable. CT shows uncomplicated diverticulitis. Will start patient on Augmentin. Otherwise feel stable for discharge with outpatient primary care follow-up. Strict return precautions were communicated to patient
who verbalized understanding
*Pulse Oximetry
SaO2: 99
Oxygen Mode of Delivery: Room air
*Critical Care Note
Total Time (30-74mins, 75-104mins- exclusive of procedures): Not Applicable
ED Attending Note
-
Portions of this chart may have been created with voice recognition software.� Occasional wrong word or��sound alike� substitutions may have occurred due to the inherent limitations of voice recognition software.
Discharge Plan
Departure
Prescriptions:
No Action
venlafaxine 75 MG capsule,extended release 24hr
150 mg PO HS
metoprolol succinate [Toprol XL] 50 MG tablet extended release 24 hr
75 mg PO HS
candesartan 8 mg Tablet
8 mg PO HS
rosuvastatin 20 mg Tablet
20 mg PO HS
raloxifene [Evista] 60 mg Tablet
60 mg PO HS
hydroxychloroquine [Plaquenil] 200 mg Tablet
300 mg PO DAILY
aspirin 81 mg Tablet,Chewable
81 mg PO DAILY Qty: 0 0RF
nitroglycerin 0.4 mg Tablet, Sublingual
0.4 mg sublingual [id number] PRN (Reason: chest pain) Qty: 30 0RF
clopidogrel 75 mg Tablet
75 mg PO DAILY Qty: 30 0RF
pantoprazole 40 mg Tablet,Delayed Release (Dr/Ec)
40 mg PO DAILY Qty: 30 0RF
Referrals:
Jessica He DO [Family Provider, Family Practice]
Interventions
Interventions:
*Risk Screen - Suicide Last Done: 09/24/24 18:57
*General Assessment Last Done: 09/24/24 18:57
*Neglect/Abuse Screening Last Done: 09/24/24 18:57
*ED- Fall Risk Assessment Last Done: 09/24/24 19:36
*ED COVID-19 Vaccine History Last Done: 09/24/24 19:36
OL-Zxetjw-Rjfeidanuq Assessment Last Done: 09/24/24 19:45
Discharge Date and Time
Print Language: LATVIAN
[2024-09-24 20:09] LABS: ALT (SGPT) 24 U/L (0-35); AST (SGOT) 28 U/L (14-36); Albumin 4.4 g/dl (3.5-5.0); Alkaline Phosphatase 44 U/L (38-126); Blood Urea Nitrogen 14 mg/dl (7-17); Calcium 9.2 mg/dl (8.4-10.2); Carbon Dioxide 26 mmol/L (22-30); Chloride 105 mmol/L (98-107); Estimated Creatinine Clearance 72 ml/min; Glucose 92 mg/dl (70-99); Lipase 76 U/L (23-300); Sodium 139 mmol/L (135-145); Total Bilirubin 0.4 mg/dl (0.2-1.3); Total Protein 7.7 g/dl (6.3-8.2); eGFR > 60.00
[2024-09-24 21:31] VITALS: BP 96/52
[2024-09-24 21:56] VITALS: BP 99/59
[2024-09-24] MEDS: AUGMENTIN 875 MG/125 MG 1 TABLET PO (22:07)
== END 2024-09-24 22:15 | disposition home or self-care (01) ==
LOC: EMR 18:55
PROVIDERS: EMERGENCY PHYSICIAN Student in an Organized Health Care Education/Training Program; FAMILY PHYSICIAN Family Medicine
DX: K57.32 Diverticulitis of large intestine without perforation or abscess without bleeding (principal); I10 Essential (primary) hypertension; E78.5 Hyperlipidemia, unspecified; Z79.02 Long term (current) use of antithrombotics/antiplatelets
CPT/HCPCS: 99285; 96360; 74177; 80053; 83690; 85025; Q9967